=== PATIENT | female | born 1930 | race Caucasian/White ===

== ENCOUNTER → 2016-03-18 | Outpatient (CLI) | payer MEDICARE ==
[~2016-03-18] MED LIST: CITA20TA4 PO; MEMA28CA PO
[2016-03-18 17:20] LABS: BICARBONATE 29.8 MEQ/L (21.0-32.0); POTASSIUM 3.6 MEQ/L (3.5-5.1)
[2016-03-22 23:55] LABS: A FUMIGATUS CLASS 1 (()); A TENUIS 0 kU/L (()); ALMOND 0.15 kU/L (()); BAHIA GRASS LESS THAN 0.10 kU/L (()); BAHIA GRASS CLASS 0 (()); BERMUDA GRASS LESS THAN 0.10 kU/L (()); BERMUDA GRASS CLASS 0 (()); BIRCH CLASS 0 (()); C HERBARUM LESS THAN 0.10 kU/L (()); C HERBARUM CLASS 0 (()); CASHEW CLASS 0 (()); CAT DANDER LESS THAN 0.10 kU/L (()); CAT DANDER CLASS 0 (()); COCKROACH LESS THAN 0.10 kU/L (()); COCKROACH CLASS 0 (()); CODFISH CLASS 0 (()); COMMON PIGWEED LESS THAN 0.10 kU/L (()); COMMON PIGWEED CLASS 0 (()); COMMON RAGWEED LESS THAN 0.10 kU/L (()); COMMON RAGWEED CLASS 0 (()); COWS MILK CLASS 0 (()); COWS MILK IGE LESS THAN 0.10 kU/L (()); D FARINAE 0.15 kU/L (()); D PTERONYSSINUS LESS THAN 0.10 kU/L (()); D PTERONYSSINUS CLASS 0 (()); DOG DANDER LESS THAN 0.10 kU/L (()); DOG DANDER CLASS 0 (()); EGG WHITE LESS THAN 0.10 kU/L (()); EGG WHITE CLASS 0 (()); HAZELNUT LESS THAN 0.10 kU/L (()); HAZELNUT CLASS 0 (()); MAPLE (BOX ELDER) 0.11 kU/L (()); MOUSE CLASS 0 (()); MOUSE URINE PROTEINS LESS THAN 0.10 kU/L (()); NETTLE LESS THAN 0.10 kU/L (()); NETTLE CLASS 0 (()); OAK WHITE LESS THAN 0.10 kU/L (()); OAK WHITE CLASS 0 (()); P NOTATUM 0.41 kU/L (()); P NOTATUM CLASS 1 (()); PEANUT 0.11 kU/L (()); PECAN TREE CLASS 0 (()); SALMON LESS THAN 0.10 kU/L (()); SALMON CLASS 0 (()); SCALLOP LESS THAN 0.10 kU/L (()); SCALLOP CLASS 0 (()); SESAME SEED 0.19 kU/L (()); SHEEP SORREL 0.11 kU/L (()); SHRIMP 0.45 kU/L (()); SHRIMP CLASS 1 (()); SOYBEAN LESS THAN 0.10 kU/L (()); SOYBEAN CLASS 0 (()); TIMOTHY GRASS LESS THAN 0.10 kU/L (()); TIMOTHY GRASS CLASS 0 (()); TUNA LESS THAN 0.10 kU/L (()); TUNA CLASS 0 (()); WALNUT LESS THAN 0.10 kU/L (()); WALNUT CLASS 0 (()); WHEAT LESS THAN 0.10 kU/L (()); WHEAT CLASS 0 (())
== END ==
LOC: PLAB 14:50
PROVIDERS: ATTEND Family Medicine
DX: R21 Rash and other nonspecific skin eruption (principal); L29.9 Pruritus, unspecified
CPT/HCPCS: 36415; 80048; 86003

== ENCOUNTER 2016-05-13 11:58 | Emergency (ER) | payer MEDICARE ==
[~2016-05-13] VITALS: Ht 162.6 cm; Wt 50.0 kg
[2016-05-13 12:01] VITALS: BP 195/74; PULSE 65; RESP 18; TEMP 97.9; O2SAT 99
[2016-05-13] MEDS ORDERED: CITA20TA4 PO (12:10)
[2016-05-13] MEDS ORDERED: MEMA28CA PO (12:10)
--- NOTE | 2016-05-13 12:38 | RADHPO ---
EXAM DATE/TIME: 05/13/2016 12:25 [facility] COMPARISON: No previous studies available for comparison. INDICATIONS : Left wrist pain. Fell MEDICAL HISTORY : None. SURGICAL HISTORY : None. ENCOUNTER: Initial ACUITY: 1 day PAIN SCORE: 0/10 LOCATION: Left wrist FINDINGS: No fracture is seen. There is chronic remodeling and degenerative hypertrophic change at the first ca rpometacarpal joint. CONCLUSION: Chronic change at the first carpometacarpal joint. Auqiles Mckeon MD on May 13, 2016 at 12:35 Board Certified Radiologist. This report was verified electronically.
--- NOTE | 2016-05-13 12:38 | PD ---
HPI Chief Complaint: Fall Time Seen by Provider: 12:08 Travel History International Travel<30 days: No Contact w/Intl Traveler<30days: No Traveled to known affect area: No History of Present Illness HPI And 85 year-old woman who presents to the emergency department complaining of pain after fall. She is a history dementia. She lives in [facility]. She has been pulling some recently. She walks with a walker. She fell today but hasn't really millimeter fall. She is pain on her left wrist, believes he hit her head. She is not complaining of any head pain. She initially denied any neck pain at all. She had full range of motion of her neck. Later she was complaints of the nurse of some neck pain. She otherwise looks well. She has no hip or leg pain. No other complaints. History Past Medical History Narrative Medical Dementia Social History Alcohol Use: No Tobacco Use: No Allergies-Medications (Allergen,Severity, Reaction): Coded Allergies: No Known Allergies (Unverified , 05/13/16) Reported Meds & Prescriptions Reported Meds & Active Scripts Active Reported Namenda Xr (Memantine) 28 Mg Caper 28 Mg PO DAILY Citalopram (Citalopram Hydrobromide) 20 Mg Tab 20 Mg PO DAILY Review of Systems Except as stated in HPI: all other systems reviewed are Neg Physical Exam Narrative GENERAL: Well-appearing 85 year-old woman, no acute distress. SKIN: Warm and dry. HEAD: Normocephalic. She is a little bit of tenderness to posterior occiput but I don't really feel any large hematomas or abrasions. No blood. EYES: Pupils equal and round. No scleral icterus. No injection or drainage. ENT: No nasal bleeding or discharge. Mucous membranes pink and moist. NECK: Trachea midline. No midline tenderness. Full range of motion.. CARDIOVASCULAR: Regular rate and rhythm. No murmur appreciated. RESPIRATORY: No accessory muscle use. Clear to auscultation. Breath sounds equal bilaterally. GASTROINTESTINAL: Abdomen soft, non-tender, nondistended. Hepatic and splenic margins not palpable. MUSCULOSKELETAL: No obvious deformities. Pretty unremarkable exam of the left wrist. Is a little bit tenderness the base of the thumb but nothing substantial. She has no pain with axial loading of the thumb. She has full range of motion of the wrist and the thumb. NEUROLOGICAL: Awake and alert. Pleasantly confused. No obvious cranial nerve deficits. Motor grossly within normal limits. Normal speech. Data Data Last Documented VS Vital Signs Date Time Temp Pulse Resp B/P Pulse Ox O2 Delivery O2 Flow Rate FiO2 05/13/16 12:05 66 05/13/16 12:01 97.9 18 195/[address] Brain W/O Iv Contrast(Rout) (05/13/16 ) Wrist, Complete ([id number]) (05/13/16 ) Ct Cerv Spine W/O Contrast (05/13/16 ) [facility] Medical Decision Making Medical Screen Exam Complete: Yes Emergency Medical Condition: Yes Interpretation(s) Left wrist x-ray: Chronic changes of the first carpometacarpal joint. CT head: No acute intracranial abnormality. CT cervical spine. Degenerative changes. Anterolisthesis of C3 and C4 felt to be degenerative. No fracture really account for such. Differential Diagnosis Fracture, contusion, injury, other Narrative Course Medical decision making Well 85-year-old with a fall. She looks fine. Is really minimal evidence of injury to left wrist. Some minimal tenderness to the base of the thumb. Conceivably she could have a scaphoid injury that the culprit and is extremely unlikely. The burning of a prophylactic splint would be very high in this woman who uses a walker to get around his artery fallen several times. She has such minimal symptoms that I would defer prophylactic splinting at this time, repeat imaging if needed. We'll check CT of her head and neck as well. FINAL: Reviewed CT head and neck as well as the wrist. The neck has Sarina some anterolisthesis is probably degenerative. I went back to reassess the patient she's had complaining of any neck pain at all. She has full painless range of motion. I don't think she needs any further imaging. Recommend outpatient follow-up. Diagnosis Primary Impression: Left wrist pain Additional Impression: Fall Qualified Code: W19.XXXA - Fall, initial encounter Additional Instructions: Take caution to prevent falls. Follow up with her primary doctor if anything still hurts in 2-3 days. Return to the emergency department for any new or worsening symptoms. Med/Other Pt SpecificInfo: Prescription(s) given Disposition: 01 DISCHARGE HOME Condition: Stable Prasad Morataya MD May 13, 2016 12:38
--- NOTE | 2016-05-13 12:47 | RADHPO ---
EXAM DATE/TIME: 05/13/2016 12:29 [facility] COMPARISON: No previous studies available for comparison. INDICATIONS : Trauma. Trip and fall. RADIATION DOSE: 57.41 CTDIvol (mGy) MEDICAL HISTORY : Dementia. SURGICAL HISTORY : Hysterectomy. ENCOUNTER: Initial ACUITY: 1 day PAIN SCALE: 4/10 LOCATION: cranial TECHNIQUE: Multiple contiguous axial images were obtained of the head. Using automated exposure control and adj ustment of the mA and/or kV according to patient size, radiation dose was kept as low as reasonably a chievable to obtain optimal diagnostic quality images. FINDINGS: CEREBRUM: Atrophy. The ventricles are normal for age. No evidence of midline shift, mass lesion, hemorrhage or acute infarction. No extra-axial fluid collections are seen. POSTERIOR FOSSA: The cerebellum and brainstem are intact. The 4th ventricle is midline. The cerebellopontine angle i s unremarkable. EXTRACRANIAL: The visualized portion of the orbits is intact. Mucosal thickening involving right sphenoid sinus wit hout air-fluid level. SKULL: The calvaria is intact. No evidence of skull fracture. CONCLUSION: 1. No acute intracranial abnormality. 2. Atrophy. Jagjit Olivares Jr., MD on May 13, 2016 at 12:43 Board Certified Radiologist. This report was verified electronically.
--- NOTE | 2016-05-13 14:28 | RADHPO ---
EXAM DATE/TIME: 05/13/2016 12:29 [facility] COMPARISON: No previous studies available for comparison. INDICATIONS: Trauma. Trip and fall. RADIATION DOSE: 24.24 CTDIvol (mGy) MEDICAL HISTORY: Dementia. SURGICAL HISTORY: Hysterectomy. ENCOUNTER: Initial ACUITY: 1 day PAIN SCALE: 2/10 LOCATION: Neck TECHNIQUE: Volumetric scanning of the cervical spine was performed. Multiplanar reconstructions in the sagittal, coronal and oblique axial planes were performed. Using automated exposure control and adjustment o f the mA and/or kV according to patient size, radiation dose was kept as low as reasonably achievable to obtain optimal diagnostic quality images. FINDINGS: There is reversal of the normal cervical lordosis with extensive degenerative changes in the cervical spine. C1 and C2 are intact. C2-C3: There is mild uncinate riding present with bilateral neural foramina encroachment. C3-C4: There is uncinate ridging and facet disease with bilateral neural foramina encroachment. There is ve ry minimal anterolisthesis of C3 on C4 thought to be related to a degenerative process. C4-C5: Uncinate ridging is present with bilateral neural foramina encroachment worse on the right than the l eft and mild spinal stenosis. Marked uncinate ridging is present with bilateral neural foramina enc roachment. C5-C6: Uncinate ridging is present with bilateral neural foramina encroachment worse on the left than the ri ght. C6-C7: The bony spinal canal is normal in size. No evidence of disc bulge or herniation. The neural forami na are bilaterally patent. C7-T1: The bony spinal canal is normal in size. No evidence of disc bulge or herniation. The neural forami na are bilaterally patent. CONCLUSION: 1. Degenerative changes as described above. 2. There is anterolisthesis of C3 on C4 thought to be degenerative. I do not see a fracture to acco unt for such. 3. Controlled flexion/extension films may be of benefit. Albert Goode MD FACR on May 13, 2016 at 13:00 Board Certified Radiologist. This report was verified electronically.
== END 2016-05-13 15:42 | disposition home or self-care (01) ==
LOC: PHED 11:58 → PHEFT 15:42
DX: M25.532 Pain in left wrist (principal); W19.XXXA Unspecified fall, initial encounter; Y93.01 Activity, walking, marching and hiking; Y92.129 Unspecified place in nursing home as the place of occurrence of the external cause
CPT/HCPCS: 70450; 72125; 73110

== ENCOUNTER → 2016-08-10 | Outpatient (CLI) | payer MEDICARE ==
[2016-08-10 13:18] LABS: AUTOMATED NEUTROPHIL # 5.1 TH/MM3 (1.8-7.7); BASOPHIL # 0.1 TH/MM3 (0-0.2); BASOPHIL % 1.3 % (0.0-2.0); EOSINOPHIL # 0.8 TH/MM3 (0-0.4); EOSINOPHIL % 9.8 % (0.0-4.0); HEMO FLAGS DIFF FINAL; LYMPH % 22.9 % (9.0-44.0); MEAN CELL VOLUME 96.3 FL (80.0-100.0); MEAN CORPUSCULAR HGB CONC 32.2 % (32.0-36.0); MONO % 7.3 % (0.0-8.0); NEUT % 58.7 % (16.0-70.0); PLATELET COUNT 242 TH/MM3 (150-450); RED BLOOD COUNT 3.32 MIL/MM3 (4.00-5.30); RED CELL DISTRIBUTION WIDTH 14.8 % (11.6-17.2); WHITE BLOOD COUNT 8.6 TH/MM3 (4.0-11.0)
[2016-08-10 13:39] LABS: ANION GAP 11 MEQ/L (5-15); AST (GOT) 16 U/L (15-37); BICARBONATE 22.5 MEQ/L (21.0-32.0); BLOOD UREA NITROGEN 32 MG/DL (7-18); CHLORIDE 107 MEQ/L (98-107); GLOMERULAR FILTRATION RATE 46 ML/MIN (>89); GLUCOSE,FASTING 79 MG/DL (74-99); POTASSIUM 4.3 MEQ/L (3.5-5.1); SODIUM (NA) 140 MEQ/L (136-145)
[2016-08-10 13:40] LABS: ALT (GPT) 18 U/L (10-53)
[2016-08-10 13:50] LABS: ALKALINE PHOSPHATASE 78 U/L (45-117); TOTAL BILIRUBIN ADULT 0.5 MG/DL (0.2-1.0)
== END ==
LOC: PLAB 12:01
PROVIDERS: ATTEND Family Medicine
DX: F41.9 Anxiety disorder, unspecified (principal); F03.90 Unspecified dementia, unspecified severity, without behavioral disturbance, psychotic disturbance, mood disturbance, and anxiety; R41.3 Other amnesia; N18.3 Chronic kidney disease, stage 3 (moderate)
CPT/HCPCS: 36415; 80053; 84443; 85025

== ENCOUNTER → 2016-10-21 | Outpatient (CLI) | payer MEDICARE ==
[~2016-10-21] MED LIST changes: +ACET500T13 PO; +GNP8.6TA PO; +ULTR50TA5 PO
[2016-10-21 17:25] LABS: AUTOMATED NEUTROPHIL # 4.2 TH/MM3 (1.8-7.7); BASOPHIL # 0.1 TH/MM3 (0-0.2); BASOPHIL % 1.5 % (0.0-2.0); EOSINOPHIL # 0.6 TH/MM3 (0-0.4); EOSINOPHIL % 6.6 % (0.0-4.0); HEMATOCRIT 32.2 % (35.0-46.0); HEMO FLAGS DIFF FINAL; LYMPH % 31.1 % (9.0-44.0); LYMPHOCYTE # 2.6 TH/MM3 (1.0-4.8); MEAN CELL VOLUME 97.1 FL (80.0-100.0); MEAN CORPUSCULAR HEMOGLOBIN 32.1 PG (27.0-34.0); MEAN CORPUSCULAR HGB CONC 33.1 % (32.0-36.0); MONO % 10.1 % (0.0-8.0); NEUT % 50.7 % (16.0-70.0); PLATELET COUNT 233 TH/MM3 (150-450); RED BLOOD COUNT 3.32 MIL/MM3 (4.00-5.30); RED CELL DISTRIBUTION WIDTH 14.6 % (11.6-17.2); WHITE BLOOD COUNT 8.4 TH/MM3 (4.0-11.0)
[2016-10-21 17:35] LABS: ANION GAP 8 MEQ/L (5-15); AST (GOT) 20 U/L (15-37); BICARBONATE 26.1 MEQ/L (21.0-32.0); BLOOD UREA NITROGEN 31 MG/DL (7-18); CHLORIDE 105 MEQ/L (98-107); GLOMERULAR FILTRATION RATE 39 ML/MIN (>89); POTASSIUM 4.1 MEQ/L (3.5-5.1); SODIUM (NA) 139 MEQ/L (136-145)
[2016-10-21 17:37] LABS: ALT (GPT) 19 U/L (10-53)
[2016-10-21 17:38] LABS: ALKALINE PHOSPHATASE 74 U/L (45-117); TOTAL BILIRUBIN ADULT 0.2 MG/DL (0.2-1.0)
== END ==
LOC: PLAB 13:59
PROVIDERS: ATTEND Family Medicine
DX: D64.9 Anemia, unspecified (principal); R41.3 Other amnesia; F03.90 Unspecified dementia, unspecified severity, without behavioral disturbance, psychotic disturbance, mood disturbance, and anxiety
CPT/HCPCS: 36415; 80053; 85025

== ENCOUNTER 2016-11-08 13:06 | Emergency (ER) | payer MEDICARE ==
[~2016-11-08 13:06] MED LIST changes: -ACET500T13 PO; -GNP8.6TA PO; -ULTR50TA5 PO
--- NOTE | 2016-11-08 13:25 | PD ---
HPI Chief Complaint: fall Time Seen by Provider: 13:10 Travel History International Travel<30 days: No Contact w/Intl Traveler<30days: No History of Present Illness HPI 85 year old female presents to the emergency department via EMS for evaluation after she fell using her walker. She is a resident at [facility]. The staff witnessed the fall. She lost her balance using her walker and fell backwards. She hit her head, but did not lose consciousness. Patient denies any pain to me. She has a history of dementia. According to EMS, she has a history of frequent falls. Patient denies any headache, chest pain, SOB, abdominal pain, nausea, vomiting, diarrhea. She is not on anticoagulants. PFSH Past Medical History Depression: Yes Dementia: Yes Diminished Hearing: No Past Surgical History Hysterectomy: Yes Social History Alcohol Use: No Tobacco Use: No Substance Use: No Allergies-Medications (Allergen,Severity, Reaction): Coded Allergies: No Known Allergies (Unverified , 05/13/16) Reported Meds & Prescriptions Reported Meds & Active Scripts Active Reported Namenda Xr (Memantine) 28 Mg Caper 28 Mg PO DAILY Citalopram (Citalopram Hydrobromide) 20 Mg Tab 20 Mg PO DAILY Review of Systems Except as stated in HPI: all other systems reviewed are Neg Physical Exam Narrative GENERAL: Well-nourished, well-developed elderly female patient, afebrile. SKIN: Focused skin assessment warm/dry. HEAD: Normocephalic. Atraumatic. EYES: No scleral icterus. No injection or drainage. NECK: Supple, trachea midline. No JVD or lymphadenopathy. CARDIOVASCULAR: Regular rate and rhythm without murmurs, gallops, or rubs. RESPIRATORY: Breath sounds equal bilaterally. No accessory muscle use. Lungs sounds are clear to auscultation. GASTROINTESTINAL: Abdomen soft, non-tender, nondistended. MUSCULOSKELETAL: No cyanosis, or edema. BACK: Nontender without obvious deformity. No CVA tenderness. Patient has mild tenderness to midline lumbar spine. No other bony point tenderness. Data Data Last Documented VS Vital Signs Date Time Temp Pulse Resp B/P (MAP) Pulse Ox O2 Delivery O2 Flow Rate FiO2 11/08/16 13:52 97 11/08/16 13:26 97.9 82 18 180/84 (116) Orders Orders Ct Brain W/O Iv Contrast(Rout) (11/08/16 ) Ct Cerv Spine W/O Contrast (11/08/16 ) Ct Lumb Spine W/O Contrast (11/08/16 ) MDM Medical Decision Making Medical Screen Exam Complete: Yes Emergency Medical Condition: Yes Medical Record Reviewed: Yes Interpretation(s) Ct brain CONCLUSION: 1. No acute intracranial abnormality. 2. Age-related atrophy. 3. Right sphenoid sinus disease. Ct cervical spine CONCLUSION: Degenerative change. An acute bony abnormality is not seen. Ct lumbar spine - CONCLUSION: 1. Mild, 3 mm, grade 1 anterolisthesis of L4 on L5, likely degenerative. 2. Otherwise, no acute fracture or subluxation. 3. 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 4. Distended bladder may reflect some degree of bladder outlet obstruction versus neurogenic bladder. Clinical correlation is recommended. 5. Small hiatal hernia. Differential Diagnosis fall vs. closed head injury vs. intracranial abnormality vs. fracture vs. contusion vs. strain Narrative Course 85 year old female presents to the emergency department via EMS for evaluation after a fall. CT of the brain, cervical spine, and lumbar spine are ordered and pending. CT of the brain shows 1. No acute intracranial abnormality; 2. Age-related atrophy; 3. Right sphenoid sinus disease. CT of the cervical spine shows Degenerative change. An acute bony abnormality is not seen. CT of the lumbar spine shows 1. Mild, 3 mm, grade 1 anterolisthesis of L4 on L5, likely degenerative; 2. Otherwise, no acute fracture or subluxation; 3. 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 Distended bladder may reflect some degree of bladder outlet obstruction versus neurogenic bladder. Clinical correlation is recommended; 5. Small hiatal hernia. The patient was able to void 350 ML's of urine without difficulty. Bladder scan was completed after which showed no residual. The patient is stable to be discharged home. I discussed all findings by attending physician, Dr. Mcfarland, who agrees with plan and disposition. The patient was discharged in stable condition with instructions, including return instructions and follow up instructions. Diagnosis Primary Impression: Fall Qualified Codes: W19.XXXA - Unspecified fall, initial encounter Additional Impression: Closed head injury Qualified Codes: S09.90XA - Unspecified injury of head, initial encounter Referrals: Primary Care Physician call for appointment Patient Instructions: Fall Prevention for Older Adults (ED), General Instructions Additional Instructions: Follow-up with your primary care physician. Return to the emergency department for any acute worsening of symptoms. Med/Other Pt SpecificInfo: No Change to Meds Disposition: 01 DISCHARGE HOME Condition: Stable Mary Grace Doan Nov 08, 2016 13:25
[2016-11-08 13:26] VITALS: BP 180/84; PULSE 82; RESP 18; TEMP 97.9
[2016-11-08 13:52] VITALS: O2SAT 97
--- NOTE | 2016-11-08 14:04 | RADRPT ---
EXAM DATE/TIME: 11/08/2016 13:51 [facility] COMPARISON: CT BRAIN W/O CONTRAST, May 13, 2016, 12:29. INDICATIONS : Patient tripped and fell with walker this morning. RADIATION DOSE: 42.13 CTDIvol (mGy) MEDICAL HISTORY : Dementia. SURGICAL HISTORY : Hysterectomy. ENCOUNTER: Initial ACUITY: 1 day PAIN SCALE: 4/10 LOCATION: cranial TECHNIQUE: Multiple contiguous axial images were obtained of the head. Using automated exposure control and adj ustment of the mA and/or kV according to patient size, radiation dose was kept as low as reasonably a chievable to obtain optimal diagnostic quality images. DICOM format image data is available electro nically for review and comparison. FINDINGS: CEREBRUM: The ventricles and cortical sulci are widened. No evidence of midline shift, mass lesion, hemorrhage or acute infarction. No extra-axial fluid collections are seen. POSTERIOR FOSSA: The cerebellum and brainstem are intact. The 4th ventricle is midline. The cerebellopontine angle i s unremarkable. EXTRACRANIAL: The visualized portion of the orbits is intact. There is right sphenoid sinus disease. SKULL: The calvaria is intact. No evidence of skull fracture. CONCLUSION: 1. No acute intracranial abnormality. 2. Age-related atrophy. 3. Right sphenoid sinus disease. Aquiles Mckeon MD on November 08, 2016 at 13:56 Board Certified Radiologist. This report was verified electronically.
--- NOTE | 2016-11-08 14:18 | RADRPT ---
EXAM DATE/TIME: 11/08/2016 13:51 [facility] COMPARISON: CT CERVICAL SPINE W/O CONTRAST, May 13, 2016, 12:29. INDICATIONS : Patient tripped and fell with walker this morning. RADIATION DOSE: 13.67 CTDIvol (mGy) MEDICAL HISTORY : Dementia. SURGICAL HISTORY : Hysterectomy. ENCOUNTER: Initial ACUITY: 1 day PAIN SCALE: 4/10 LOCATION: neck TECHNIQUE: Volumetric scanning of the cervical spine was performed. Multiplanar reconstructions in the sagittal, coronal and oblique axial planes were performed. Using automated exposure control and adjustment o f the mA and/or kV according to patient size, radiation dose was kept as low as reasonably achievable to obtain optimal diagnostic quality images. DICOM format image data is available electronically f or review and comparison. FINDINGS: VERTEBRAE: Normal vertebral body height. ALIGNMENT: There is mild persistent anterior subluxation of C3 on C4. C2-C3: The bony spinal canal is normal in size. No evidence of disc bulge or herniation. The neural forami na are bilaterally patent. There is moderate left facet hypertrophy. C3-C4: Again noted is the anterior subluxation of C3 on C4. This is secondary to facet hypertrophy. This was present previously. The disc maintains its normal relationship with the superior aspect of C4 creati ng a mild bulge like configuration. There is mild narrowing of the thecal sac. There is mild right ne ural foraminal narrowing. The left neural foramen is patent. C4-C5: The disc demonstrates decreased height. There is mild bulging and osteophyte formation causing minima l impression on anterior aspect of the thecal sac. There is uncovertebral hypertrophy and facet hyper trophy. The facet hypertrophy is asymmetric and worse on the right. There is mild narrowing of the ne ural foramina. C5-C6: The disc demonstrates decreased height. There is slight bulging without significant stenosis. There i s uncovertebral and facet hypertrophy. There is narrowing of the neural foramina being worse on the l eft. C6-C7: The disc demonstrates decreased height. A significant impression on the thecal sac is not seen. There is mild uncovertebral hypertrophy. The neural foramina are patent bilaterally. C7-T1: The bony spinal canal is normal in size. No evidence of disc bulge or herniation. The neural forami na are bilaterally patent. CONCLUSION: Degenerative change. An acute bony abnormality is not seen. Aquiles Mckeon MD on November 08, 2016 at 14:11 Board Certified Radiologist. This report was verified electronically.
--- NOTE | 2016-11-08 14:23 | RADRPT ---
EXAM DATE/TIME: 11/08/2016 13:59 [facility] COMPARISON: No previous studies available for comparison. INDICATIONS : Patient tripped and fell with walker this morning. RADIATION DOSE: 35.86 CTDIvol (mGy) MEDICAL HISTORY : Dementia. SURGICAL HISTORY : Hysterectomy. ENCOUNTER: Initial ACUITY: 1 day PAIN SCALE: 4/10 LOCATION: spine TECHNIQUE: Volumetric scanning of the lumbar spine was performed. Multiplanar reconstructions in the sagittal, coronal and oblique axial planes were performed. Using automated exposure control and adjustment of the mA and/or kV according to patient size, radiation dose was kept as low as reasonably achievable t o obtain optimal diagnostic quality images. DICOM format image data is available electronically for review and comparison. FINDINGS: Mild, 3 mm, grade 1 anterolisthesis of L4 on L5. Sagittal alignment is otherwise maintained. Vertebra l body heights are intact. No evidence for acute bony fracture or focal bony destruction. Facets are normally aligned. Bony central canal is patent. No significant prevertebral soft tissue hematoma. Taye dder appears distended. Small hiatal hernia. Visualized paraspinal soft tissues are demonstrated with out additional significant abnormality. There is degenerative spondylosis of the lower lumbar spine m ost prominent at L4-5 and L5-S1 with vacuum disc phenomenon, diffuse disc bulge and bilateral facet a rthropathy. CONCLUSION: 1. Mild, 3 mm, grade 1 anterolisthesis of L4 on L5, likely degenerative. 2. Otherwise, no acute fracture or subluxation. 3. 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 4. Distended bladder may reflect some degree of bladder outlet obstruction versus neurogenic bladder. Clinical correlation is recommended. 5. Small hiatal hernia. Silver Clarke MD on November 08, 2016 at 14:16 Board Certified Radiologist. This report was verified electronically.
--- NOTE | 2016-11-08 18:13 | PD ---
Data Data Last Documented VS Vital Signs Date Time Temp Pulse Resp B/P (MAP) Pulse Ox O2 Delivery O2 Flow Rate FiO2 11/08/16 13:52 97 11/08/16 13:26 97.9 82 18 180/84 (116) Orders Orders Ct Brain W/O Iv Contrast(Rout) (11/08/16 ) Ct Cerv Spine W/O Contrast (11/08/16 ) Ct Lumb Spine W/O Contrast (11/08/16 ) MDM Supervised Visit with ABDULAZIZ: Yes Narrative Course The history, exam, and medical decision-making in the associated midlevel provider note were completed with my assistance. I reviewed and agree with the findings presented. I attest that I had a [id number] encounter with the patient on the same day, and personally performed and documented my assessment and findings in the medical record. *My assessment and Findings: This is an 85-year-old female who presents to the emergency department having sustained a closed head injury and injuring her low back following a fall. CT of the head was reassuring. CT lumbar spine demonstrated a distended bladder. Patient voided and had no postvoid residual bladder scan. I think she is safe for discharge. Diagnosis Primary Impression: Fall Qualified Codes: W19.XXXA - Unspecified fall, initial encounter Additional Impression: Closed head injury Referrals: Primary Care Physician call for appointment Patient Instructions: General Instructions, Fall Prevention for Older Adults ( ED) Departure Forms: Tests/Procedures Additional Instruction: Follow-up with your primary care physician. Return to the emergency department for any acute worsening of symptoms. Disposition: 01 DISCHARGE HOME Condition: Stable Lizzie Teresa MD Nov 08, 2016 18:13
== END 2016-11-08 17:35 | disposition home or self-care (01) ==
LOC: NEPC 13:06
DX: S09.90XA Unspecified injury of head, initial encounter (principal); S39.92XA Unspecified injury of lower back, initial encounter; F03.90 Unspecified dementia, unspecified severity, without behavioral disturbance, psychotic disturbance, mood disturbance, and anxiety; F32.9 Major depressive disorder, single episode, unspecified; K44.9 Diaphragmatic hernia without obstruction or gangrene; W18.30XA Fall on same level, unspecified, initial encounter
CPT/HCPCS: 70450; 72125; 72131; 99285

== ENCOUNTER 2016-12-15 18:16 | Inpatient (IN) | payer MEDICARE ==
[2016-12-15 19:22] VITALS: BP 155/98; PULSE 93; RESP 17; TEMP 97.5; O2SAT 96
--- NOTE | 2016-12-15 21:09 | PD ---
HPI . Fall Chief Complaint: Fall Time Seen by Provider: 19:17 Travel History International Travel<30 days: No Contact w/Intl Traveler<30days: No Traveled to known affect area: No History of Present Illness HPI 86-year-old female presents emergency department via EMS for evaluation after she fell in her [facility]. The report was that the patient was trying to get to her wheelchair and fell. The patient is confused however I understand she has a history of dementia. The patient is complaining of abdominal pain and thoracic level back pain. Patient denies any paresthesias at this time. The patient is alert to self but very confused and thinks she is gardening. There is no focal neurological deficit noted. There is no obvious deformities. The abdomen is soft but tender to palpation. PFSH Past Medical History Depression: Yes Dementia: Yes Diminished Hearing: No Tetanus Vaccination: Unknown Past Surgical History Hysterectomy: Yes Social History Alcohol Use: No Tobacco Use: No Substance Use: No Allergies-Medications (Allergen,Severity, Reaction): Coded Allergies: No Known Allergies (Unverified , 05/13/16) Reported Meds & Prescriptions Reported Meds & Active Scripts Active Reported Namenda Xr (Memantine) 28 Mg Caper 28 Mg PO DAILY Citalopram (Citalopram Hydrobromide) 20 Mg Tab 20 Mg PO DAILY Review of Systems Except as stated in HPI: all other systems reviewed are Neg Physical Exam Narrative GENERAL: Well-nourished, well-developed 86-year-old female patient in no acute rest for distress. Nontoxic appearing. SKIN: Focused skin assessment warm/dry. HEAD: Normocephalic. Atraumatic. NEUROLOGICAL: Awake and alert. Cranial nerves II through XII intact. Motor and sensory grossly within normal limits. Five out of 5 muscle strength in all muscle groups. Normal speech. EYES: No scleral icterus. No injection or drainage. NECK: Supple, trachea midline. No JVD or lymphadenopathy. CARDIOVASCULAR: Regular rate and rhythm without murmurs, gallops, or rubs. RESPIRATORY: Breath sounds equal bilaterally. No accessory muscle use. GASTROINTESTINAL: Abdomen diffusely tender to palpation, soft, nondistended. MUSCULOSKELETAL: Full range of motion in extremities. No obvious deformity, ecchymosis, erythema, cyanosis, or edema. BACK: Midline spinal tenderness thoracic region. Cervical and lumbar spine nontender. No obvious deformity or signs of trauma, ecchymosis, erythema. No CVA tenderness. Data Data Last Documented VS Vital Signs Date Time Temp Pulse Resp B/P (MAP) Pulse Ox O2 Delivery O2 Flow Rate FiO2 12/15/16 22:31 92 18 140/73 (95) 95 Room Air 12/15/16 19:[address] Brain W/O Iv Contrast(Rout) (12/15/16 19:28) Ct Abd/Pel W Iv Contrast(Rout) (12/15/16 19:28) Ct Thor Spine W/O Contrast (12/15/16 19:28) Creatinine (12/15/16 19:28) Ct Thorax/ Chest W Iv Contrast (12/15/16 ) Iohexol 350 Inj (Omnipaque 350 Inj) (12/15/16 21:21) Ct Lumb Spine W/O Contrast (12/15/16 22:44) Complete Blood Count With Diff (12/15/16 22:51) Urinalysis - C+S If Indicated (12/15/16 22:51) Cath For Specimen (12/15/16 22:51) Admit Order (Ed Use Only) (12/15/16 22:51) Labs Laboratory Tests Test 12/15/16 20:10 Creatinine 1.10 MG/DL Estimat Glomerular Filtration Rate 47 ML/MIN MDM Medical Decision Making Medical Screen Exam Complete: Yes Emergency Medical Condition: Yes Differential Diagnosis Differential diagnoses include but not limited to ICH, contusion, intra- abdominal bleeding, spleen laceration, fractures, fall Narrative Course 86-year-old female patient presents emergency department for evaluation after she fell at her [facility]. Patient is alert to self but confused. Patient is complaining of abdominal tenderness to palpation and thoracic level midline spinal tenderness. CT of brain, thoracic spine and abdomen ordered and pending. Creatinine will be evaluated prior to abdomen CT due to contrast being indicated. Abdominal CT shows no acute intra-abdominal or pelvic process with intact solid organs. Small of the local hernia containing fat. Head CT is a normal examination for a patient of this age Thoracic spine CT shows mild anterior wedging at T7 and T8 with essentially a kyphosis and degenerative spurring at the levels above suggesting representing remote compressions. There appears to be a concavity in cortical disruption of the superior vertebrae and endplate of L2 consistent with acute fracture. Lumbar spine CT ordered and pending to further evaluate the acute fracture. Patient will be admitted to the hospital for [address] Aldridge accepted admission for this patient. Baseline CBC and urinalysis ordered and pending. Diagnosis Primary Impression: Fall Qualified Codes: W19.XXXA - Unspecified fall, initial encounter Admitting Information Admitting Physician Requests: Observation Patient Instructions: Fall Prevention for Children (GEN), General Instructions Additional Instructions: Please return to emergency department if your symptoms return or worsen. Follow up with your primary care provider. Take medications as prescribed. Disposition: DISCHARGE HOME Condition: Stable Ina Eason Dec 15, 2016 21:09
[2016-12-15] MEDS ORDERED: IOHEXOL 350 MG/ML 10 ML VIAL (for RAD DIAG) IVCONTRAST ONE (21:21)
--- NOTE | 2016-12-15 21:30 | RADRPT ---
EXAM DATE/TIME: 12/15/2016 20:54 [facility] COMPARISON: CT BRAIN W/O CONTRAST, May 13, 2016, 12:29. INDICATIONS : Trauma, fall. RADIATION DOSE: 65.84 CTDIvol (mGy) MEDICAL HISTORY : None SURGICAL HISTORY : None. ENCOUNTER: Initial ACUITY: 1 day PAIN SCALE: 0/10 LOCATION: cranial TECHNIQUE: Multiple contiguous axial images were obtained of the head. Using automated exposure control and adj ustment of the mA and/or kV according to patient size, radiation dose was kept as low as reasonably a chievable to obtain optimal diagnostic quality images. DICOM format image data is available electro nically for review and comparison. FINDINGS: CEREBRUM: The ventricles are normal for age. No evidence of midline shift, mass lesion, hemorrhage or acute in farction. No extra-axial fluid collections are seen. POSTERIOR FOSSA: The cerebellum and brainstem are intact. The 4th ventricle is midline. The cerebellopontine angle i s unremarkable. EXTRACRANIAL: The visualized portion of the orbits is intact. SKULL: The calvaria is intact. No evidence of skull fracture. CONCLUSION: Normal examination for a patient of this age. Lenny Contreras MD on December 15, 2016 at 21:27 Board Certified Radiologist. This report was verified electronically.
--- NOTE | 2016-12-15 21:36 | RADRPT ---
EXAM DATE/TIME: 12/15/2016 21:02 [facility] COMPARISON: CT CERVICAL SPINE W/O CONTRAST, November 08, 2016, 13:51. INDICATIONS : Trauma, fall. IV CONTRAST: 80 cc Omnipaque 350 (iohexol) IV ; Cumulative dose for multiple exams. RADIATION DOSE: 13.51 CTDIvol (mGy) ; Combined studies - Thorax/Abdomen/Pelvis MEDICAL HISTORY : Non-responsive. SURGICAL HISTORY : Non-responsive. ENCOUNTER: Initial ACUITY: 1 day PAIN SCALE: Non-responsive LOCATION: chest TECHNIQUE: Volumetric scanning of the chest was performed. Using automated exposure control and adjustment of t he mA and/or kV according to patient size, radiation dose was kept as low as reasonably achievable to obtain optimal diagnostic quality images. DICOM format image data is available electronically for review and comparison. Follow-up recommendations for detected pulmonary nodules are based at a minimum on nodule size and pa tient risk factors according to Fleischner Society Guidelines. FINDINGS: LUNGS: There is no consolidation or pneumothorax. No concerning pulmonary nodule is visualized. Stable bila teral apical parenchymal scarring PLEURA: Stable bilateral apical pleural thickening. MEDIASTINUM: The heart and great vessels demonstrate no acute abnormality. There is no mediastinal or hilar lymph adenopathy. Coronary artery calcifications and large retrocardiac hiatal hernia. AXILLAE: Within normal limits. No lymphadenopathy. SKELETAL: Within normal limits for patient age. MISCELLANEOUS: The visualized upper abdominal organs demonstrate no acute abnormality. CONCLUSION: No acute abnormality with intact bony structures. Coronary artery calcifications. Chronic pleural-par enchymal apical scarring.. Lenny Contreras MD on December 15, 2016 at 21:29 Board Certified Radiologist. This report was verified electronically.
--- NOTE | 2016-12-15 21:41 | RADRPT ---
EXAM DATE/TIME: 12/15/2016 21:02 [facility] COMPARISON: No previous studies available for comparison. INDICATIONS : Trauma, fall. IV CONTRAST: 80 cc Omnipaque 350 (iohexol) IV ; Cumulative dose for multiple exams. ORAL CONTRAST: No oral contrast ingested. RADIATION DOSE: 13.51 CTDIvol (mGy) ; Combined studies - Thorax/Abdomen/Pelvis MEDICAL HISTORY : Non-responsive. SURGICAL HISTORY : Hysterectomy. ENCOUNTER: Initial ACUITY: 1 day PAIN SCALE: Non-responsive LOCATION: pelvis TECHNIQUE: Volumetric scanning of the abdomen and pelvis was performed. Using automated exposure control and adjustment of the mA and/or kV according to patient size, radiation dose was kept as low as reasonably achievable to obtain optimal diagnostic quality images. DICOM format image data is av ailable electronically for review and comparison. FINDINGS: LOWER LUNGS: The visualized lower lungs are clear. Moderate-sized retrocardiac hiatal hernia LIVER: Homogeneous density without lesion. There is no dilation of the biliary tree. No calcifi ed gallstones. Gallbladder is seen as a luminal structure without wall thickening SPLEEN: Normal size without lesion. PANCREAS: Within normal limits. KIDNEYS: Normal in size and shape. There is no mass, stone or hydronephrosis. ADRENAL GLANDS: Within normal limits. VASCULAR: There is no aortic aneurysm. BOWEL/MESENTERY: The stomach, small bowel, and colon demonstrate no acute abnormality. There is no free intraperitoneal air or fluid. ABDOMINAL WALL: Small umbilical hernia containing fat. RETROPERITONEUM: There is no lymphadenopathy. BLADDER: No wall thickening or mass. REPRODUCTIVE: Within normal limits. Surgical absence of the uterus INGUINAL: There is no lymphadenopathy or hernia. MUSCULOSKELETAL: Within normal limits for patient age. Facet arthritic changes of the lower lumba r spine CONCLUSION: No acute intra-abdominal or pelvic process with intact solid organs. Facet arthritic changes of lower lumbar spine with intact bony structures. Small umbilical hernia containing fat Lenny Contreras MD on December 15, 2016 at 21:35 Board Certified Radiologist. This report was verified electronically.
--- NOTE | 2016-12-15 21:50 | RADRPT ---
EXAM DATE/TIME: 12/15/2016 21:02 [facility] COMPARISON: CT ABDOMEN & PELVIS W CONTRAST, December 15, 2016, 21:02. CT LUMBAR SPINE W/O CONTRAST, November 08, 2016, 13:59. CT CERVICAL SPINE W/O CONTRAST, May 13, 2016, 12:29. INDICATIONS : Trauma, fall. RADIATION DOSE: CTDIvol (mGy) ; Reconstructed from previous dataset, no dose MEDICAL HISTORY : None SURGICAL HISTORY : None. ENCOUNTER: Initial ACUITY: 1 day PAIN SCALE: 5/10 LOCATION: Paraspinal TECHNIQUE: Volumetric scanning of the thoracic spine was performed. Multiplanar reconstructions in the sagittal , coronal and oblique axial planes were performed. Using automated exposure control and adjustment o f the mA and/or kV according to patient size, radiation dose was kept as low as reasonably achievable to obtain optimal diagnostic quality images. DICOM format image data is available electronically f or review and comparison. FINDINGS: Alignment appears normal. Interspersed anterior marginal spurring is appreciated. There is mild anter ior wedging of T7 and T8 with slight accentuated kyphosis and there is degenerative change spurring a t the levels above and below without cortical break or soft tissue mass suggesting this is remote. No retropulsion or spinal stenosis is noted at this level. On the lowest images there appears to be concavity superior vertebral end plate of L2 with cortical disruption consistent with a superior vertebral endplate fracture acute. CONCLUSION: Mild anterior wedging T7 and T8 as described above with slight accentuated kyphosis and degenerative spurring at the levels above and below suggesting this represents remote compressions. On the lowest images there is concavity and cortical disruption of the superior vertebral endplate of L2 consistent with acute fracture Lenny Contreras MD on December 15, 2016 at 21:41 Board Certified Radiologist. This report was verified electronically.
[2016-12-15 22:31] VITALS: BP 140/73; PULSE 92; RESP 18; O2SAT 95
[2016-12-15] MEDS ORDERED: NALOXONE HCL 0.4 MG/ML AMP IV PUSH PRN (23:00)
[2016-12-15] MEDS ORDERED: SENNOSIDES 8.6 MG TAB PO PRN (23:00)
[2016-12-15] MEDS ORDERED: SODIUM CHLORIDE 0.9% FLUSH 10 ML FLUSH IV FLUSH PRN (23:00)
--- NOTE | 2016-12-15 23:08 | HHI.PR ---
Addendum to Inpatient Note Addendum Reason: Additional Documentation Additional Information d/w ORTHODONTIC ASSISTANT in the ED. Will obs as her [facility] will not take her back tonight. Pt not painful in bed, encouraged to test with transfers. Check CT lumbar spine regarding fracture. Consider kyphoplasty if significant discomfort. Avoid narcotics if possible. Nursing notes she is pulling out IV so will leave it out as long as we don't need any IV meds (pending UA). Discussed with daughter and agreed with DNR status due to her advanced age, dementia, decline. I will see her in early AM tomorrow but advised pts daughter that if she needs to stay further, I will need to have [facility] follow as I will be out of town. If fracture and pain with inability to transfer, consider kyphoplasty. If not significant pain, consider TLSO brace for 6-8 weeks to allow healing. Zoraida Herring MD Dec 15, 2016 23:08
--- NOTE | 2016-12-15 23:13 | RADRPT ---
EXAM DATE/TIME: 12/15/2016 21:02 [facility] COMPARISON: CT LUMBAR SPINE W/O CONTRAST, November 08, 2016, 13:59. INDICATIONS : Trauma, fall. RADIATION DOSE: CTDIvol (mGy) ; Reconstructed from previous dataset, no dose MEDICAL HISTORY : Non-responsive. SURGICAL HISTORY : Non-responsive. ENCOUNTER: Initial ACUITY: 1 day PAIN SCALE: Non-responsive LOCATION: Paraspinal TECHNIQUE: Volumetric scanning of the lumbar spine was performed. Multiplanar reconstructions in the sagittal, coronal and oblique axial planes were performed. Using automated exposure control and adjustment of the mA and/or kV according to patient size, radiation dose was kept as low as reasonably achievable t o obtain optimal diagnostic quality images. DICOM format image data is available electronically for review and comparison. FINDINGS: There is again noted to be degenerative disc disease L3-S1 narrow disc spaces with air vacuum signs o f facet arthritic changes with additionally a grade 1 spondylolisthesis L4 on L5. Severe elements are intact. Relative prior examination there is an acute fracture superior posterior aspect of the L2 vertebral body with retropulsion of the superior posterior cortex into th e canal yielding localized spinal stenosis maximum AP width being 1 cm. CONCLUSION: New fracture superior posterior aspect of the L2 vertebral body with retropulsion of the superior pos terior cortex into the canal yielding 1 cm localized spinal stenosis. Stable degenerative changes L3-S1 with degenerative disc disease and facet arthritic changes and a grade 1 spondylolisthesis L4 on L5 Lenny Contreras MD on December 15, 2016 at 23:09 Board Certified Radiologist. This report was verified electronically.
[2016-12-15 23:50] LABS: AUTOMATED NEUTROPHIL # 9.9 TH/MM3 (1.8-7.7); BASOPHIL # 0.1 TH/MM3 (0-0.2); BASOPHIL % 0.5 % (0.0-2.0); EOSINOPHIL # 0.2 TH/MM3 (0-0.4); EOSINOPHIL % 1.4 % (0.0-4.0); HEMATOCRIT 32.8 % (35.0-46.0); HEMO FLAGS DIFF FINAL; LYMPH % 12.9 % (9.0-44.0); LYMPHOCYTE # 1.6 TH/MM3 (1.0-4.8); MEAN CELL VOLUME 92.2 FL (80.0-100.0); MEAN CORPUSCULAR HEMOGLOBIN 31.3 PG (27.0-34.0); MEAN CORPUSCULAR HGB CONC 33.9 % (32.0-36.0); MONO % 7.4 % (0.0-8.0); NEUT % 77.8 % (16.0-70.0); PLATELET COUNT 215 TH/MM3 (150-450); RED BLOOD COUNT 3.56 MIL/MM3 (4.00-5.30); RED CELL DISTRIBUTION WIDTH 13.2 % (11.6-17.2); WHITE BLOOD COUNT 12.7 TH/MM3 (4.0-11.0)
[2016-12-16] LABS: GLUCOSE,URINE NEG (NEG); KETONE, URINE NEG (NEG); NITRITE,URINE NEG (NEG)
[2016-12-16 00:21] LABS: BLOOD, URINE TRACE (NEG)
[2016-12-16 00:22] LABS: METHOD OF COLLECTION VOIDED; SQUAMOUS EPITHELIAL CELL URINE 0-2 /hpf (0-5); URINE COLOR STRAW (YELLW/STRAW); WBC, URINE 0-2 /hpf (0-5)
[2016-12-16 00:23] LABS: COMMENT (UR) CULT NOT INDICATED; CULTURE IF INDICATED CULT NOT INDICATED
[2016-12-16 01:00] VITALS: BP 125/84; PULSE 87; RESP 20; TEMP 98.6; O2SAT 92
--- NOTE | 2016-12-16 06:11 | HHI.PR ---
Addendum to Inpatient Note Addendum Reason: Additional Documentation Additional Information Patient seen and evaluated this AM. Will speak with radiology about possible kyphoplasty. She was uncomfortable on exam,not wanting to roll onto her back. Will try to see if we can get her kyphoplasty. If not will likely need to get her to rehab. Full note to be dictated. Zoraida Herring MD Dec 16, 2016 06:11
[2016-12-16] MEDS ORDERED: POTASSIUM CHLORIDE INJ 10 MEQ in SODIUM CHLOR 0.45% 1000 ML INJ 1,000 ML IV SCH (06:30)
[2016-12-16 07:50] VITALS: BP 140/70; PULSE 71; RESP 20; TEMP 96.2; O2SAT 96
[2016-12-16] MEDS: SODIUM CHLORIDE 0.9% FLUSH 10 ML FLUSH IV FLUSH SCH ×2 (08:42→20:51)
[2016-12-16] MEDS: DOCUSATE SODIUM 50 MG/SENNA 8.6 MG TAB PO SCH ×2 (08:42→20:51)
[2016-12-16] MEDS ORDERED: NON-FORMULARY DRUG (Memantine Er (Namenda Xr) 28 MG) PO SCH (09:00)
[2016-12-16] MEDS ORDERED: CITALOPRAM HYDROBROMIDE 20 MG TAB PO SCH (09:00)
--- NOTE | 2016-12-16 09:13 | MH ---
cc: JAIME THOMPSON DATE OF ADMISSION 12/15/2016 CHIEF COMPLAINT Fall at her assisted living. HISTORY OF PRESENT ILLNESS Ms. Hernández is an 86-year-old white female well-known to me with a progressive dementia who was at her assisted living yesterday evening and was found on the floor at the end of a hallway. She had difficulty getting up and was having complaints of pain in through her mid to lower back and abdomen. She was transferred via [facility] to the hospital for evaluation. History is limited from the patient due to her dementia, but she does complain of significant back pain. PAST MEDICAL HISTORY Significant for: 1. Macular degeneration 2. Osteoarthritis 3. Osteoporosis 4. Dementia 5. History of MRSA infection of her left arm December 09, 2016 resolved. PAST SURGICAL HISTORY 1. Hysterectomy 2. Tonsillectomy 3. Basal cell cancer of the nose removed in April of 2015. SOCIAL HISTORY She is in the past few years. She has no alcohol use. She is a retired pre school teacher. She has a college education. She has never smoked. MEDICATIONS 1. Tylenol 325 mg twice a day as needed for pain. 2. Citalopram 20 mg daily 3. Namenda XR 28 mg per day 4. She has previously been on osteoporosis medications for five years and it was subsequently stopped. ALLERGIES NO KNOWN DRUG ALLERGIES. FAMILY HISTORY Daughter is healthy. She is a eeler in [place]. Dad at 90 with an [place], arthritis and prostate disease. Mom at age 84 with osteoporosis, hip fracture, hypertension and congestive heart failure. She has two sons who are healthy. VACCINES Pneumovax 23 given in 2002, Prevnar April 2015. She did her flu shot December 09, 2016 in my office. REVIEW OF SYSTEMS Limited due to her dementia. She denies any chest discomfort or shortness of breath. She says her abdomen feels a little sore but cannot really describe it to me. There has not been any reports of diarrhea or pain with urination or changes in her urinary pattern. There is no nausea or vomiting. She does note that her back is significantly painful. She denies any pain into her legs or arms. She notes that she has itching. She denies any pain in through her head. She is generally confused and is talking about people opening windows in the room. She states that she is in a garden. She is not oriented to time or place. She does have a recollection that she fell, but cannot tell me the details of the events. OBJECTIVE Her blood pressure was a little elevated on admission at 155/98, currently 125/84. She has been afebrile. Her heart rate was initially elevated 93, now 87, O2 sats 96% on room air. GENERAL: She is a well-developed white female laying in the position on the left side in bed sleeping soundly when I arrived. She easily awakens. She is confused, but not in distress. NECK: Supple without lymphadenopathy. She has no lesions noted to her scalp. CARDIOVASCULAR: Regular rate and rhythm without murmurs. LUNGS: Clear bilaterally without wheezes or rhonchi. She does not seem to have discomfort taking deep breaths. ABDOMEN: Shows normal bowel sounds, slightly tender to the right lower quadrant. I do not see any bruising noted through her abdomen, back or buttocks at this time. BACK: She is tender to the mid left paraspinal area not so much over the spine. She is able to have passive range of motion of both lower legs while she is lying on her side with apparently intact strength, but difficult to evaluate due to her position. I tried to get her to roll to her back and she complained of severe pain and refused to do so. I was unable to get her to a sitting position either. She seemed to have full range of motion of her arms. She has an IV in her right antecubital fossa that is well wrapped. She is scratching during exam. LABORATORY DATA Shows a white count slightly elevated at 12.7, hemoglobin 11.1 which is stable for her. Neutrophils minimally elevated at 77.8 probably stress response. Creatinine 1.1 with a GFR of 47 which is actually improved. Urine shows a slightly high specific gravity of 1.035, trace blood, otherwise negative. IMAGING STUDIES CT of the lumbar spine shows an L2 compression fracture with retropulsion, mild spinal stenosis, arthritis changes throughout the low back. The abdomen and pelvis CT showed no acute intra-abdominal process. Arthritis changes to the spine and an umbilical hernia containing fat. Head CT showed general atrophy, but otherwise negative for stroke or hematoma. Thoracic spine CT showed old compression fractures of T7, T8 acute compression fracture at L2. Chest CT showed chronic scarring, coronary calcifications but otherwise within normal limits. ASSESSMENT/PLAN Fall with L2 compression fracture. She is really not able to move well today. I have consulted physical therapy for further evaluation. She may benefit from a TLSO brace. I am in conversation with neurosurgery and interventional radiology regarding the options for kyphoplasty or other procedures to stabilize her spine so that we can try to get her more mobile. I do feel that this time in her current condition, the [facility] currently resides will not take her back in her current condition as I do not think she will be able to independently transfer. I have spoken with her daughter regarding this and that we may need to proceed with fpc placement. She is significantly concerned with that idea due to her dementia and likely disruption in her emotional status which is reasonable, however, may be unavoidable. Dementia. She was not tolerating Aricept due to GI upset. She has been doing well with the Namenda, but continues to have decline in her mental status. She has declined in her ambulatory skills over the past year, her verbalization has significantly declined and also in the past year mostly in the past six months. She is dependent on others for her ADLs, preparation of meals, dressing. She has been able to independently transfer, but has been mostly in a wheelchair for the past several months due to being unsafe with walking with a walker. She does tend to forget the walker and is unable to ambulate without that. Plan of care will be dependent upon potential procedures to stabilize her spine versus continuing with supportive care in a TLSO brace. Regardless, I feel that she will likely need at least a short-term fpc stay for rehabilitation and to try to get her independent in transfers unless she does get significant pain relief with the surgical procedure. Further details later in the day once I have spoken with the consultants. MD CAMI De/ROSANNA /8:18 AM 8:49 AM
--- NOTE | 2016-12-16 09:32 | HHI.PR ---
Addendum to Inpatient Note Addendum Reason: Additional Documentation Additional Information I spoke with Dr. Casillas (interventional radiology) who noted it is a risk for kyphoplasty due to the retropulsed fragment and risk of further nerve compression but he would be willing to do it if family was understanding of the risks. Her daughter wanted me to speak with neurosurgery. I spoke with Dr. Thapa who agreed with the above risk and was more conservative. We decided to do the TLSO brace, PT and rehab. could consider pain mgt injection if pain continues. will try tramadol if pain not controlled with tylenol (avoiding nsaids due to renal function decline on them in the past) but would need to lower/stop the citalopram. Zoraida Moore MD Dec 16, 2016 09:32
--- NOTE | 2016-12-16 09:33 | HHI.PR ---
Addendum to Inpatient Note Addendum Reason: Additional Documentation Additional Information Discussed with Dr. Alexander with [facility] who will take over care this afternoon/ tomorrow as I'm going out of town. Zoraida Herring MD Dec 16, 2016 09:33
[2016-12-16] MEDS ORDERED: traMADol HCL 50 MG TAB PO PRN (09:45)
[2016-12-16 12:00] VITALS: BP 136/79; PULSE 68; RESP 18; TEMP 97.8; O2SAT 94
[2016-12-16] MEDS: ACETAMINOPHEN 325 MG TAB PO PRN ×2 (12:29→17:15)
[2016-12-16 16:00] VITALS: BP 130/64; PULSE 73; RESP 12; TEMP 96.1; O2SAT 92
[2016-12-16 20:00] VITALS: BP 161/80; PULSE 77; RESP 24; TEMP 98.2; O2SAT 96
[2016-12-16] MEDS: ACETAMINOPHEN 500 MG CPLT PO SCH (20:51)
[2016-12-17 08:00] VITALS: BP 139/63; PULSE 63; RESP 16; TEMP 96.8; O2SAT 95
[2016-12-17] MEDS ORDERED: INFLUENZA VIRUS VACCINE (QUADRIVALENT) 0.5 ML SYR IM ONE (10:00)
[2016-12-17] MEDS: SODIUM CHLORIDE 0.9% FLUSH 10 ML FLUSH IV FLUSH SCH ×2 (10:09→20:28)
[2016-12-17] MEDS: CITALOPRAM HYDROBROMIDE 20 MG TAB PO SCH (10:09)
[2016-12-17] MEDS: ACETAMINOPHEN 500 MG CPLT PO SCH ×3 (10:09→17:46)
[2016-12-17] MEDS: DOCUSATE SODIUM 50 MG/SENNA 8.6 MG TAB PO SCH ×2 (10:09→20:28)
--- NOTE | 2016-12-17 11:08 | HHI.PR ---
Subjective Remarks Patient seen today in follow-up for lumbar compression fracture, discussed with PT yesterday regarding back brace. She has received it. Discharge planning continues Pain controlled Objective Vitals Vital Signs Date Time Temp Pulse Resp B/P (MAP) Pulse Ox O2 Delivery O2 Flow Rate FiO2 12/17/16 08:00 96.8 63 16 139/63 (88) 95 12/16/16 20:00 98.2 77 24 161/80 (107) 96 12/16/16 16:00 96.1 73 12 130/64 (86) 92 12/16/16 12:00 97.8 68 18 136/79 (98) 94 I/O 12/16/16 12/16/16 12/16/16 12/17/16 12/17/16 12/17/16 07:00 15:00 23:00 07:00 15:00 23:00 Intake Total 106 ml 600 ml 480 ml Output Total 700 ml 400 ml Balance -700 ml 106 ml 600 ml 80 ml Intake Oral 600 ml 480 ml IV Total 106 ml Output Urine Total 700 ml 400 ml # Voids 2 2 # Bowel Movements 0 0 Result Diagram: 12/15/16 2336 12/15/162009 Imaging Last Impressions Lumbar Spine CT 12/15/164 Signed Impressions: Service Date/Time: Thursday, December 15, 2016 21:02 - CONCLUSION: New fracture superior posterior aspect of the L2 vertebral body with retropulsion of the superior posterior cortex into the canal yielding 1 cm localized spinal stenosis. Stable degenerative changes L3-S1 with degenerative disc disease and facet arthritic changes and a grade 1 spondylolisthesis L4 on L5 Lenny Contreras MD Thoracic Spine CT 12/15/161927 Signed Impressions: Service Date/Time: Thursday, December 15, 2016 21:02 - CONCLUSION: Mild anterior wedging T7 and T8 as described above with slight accentuated kyphosis and degenerative spurring at the levels above and below suggesting this represents remote compressions. On the lowest images there is concavity and cortical disruption of the superior vertebral endplate of L2 consistent with acute fracture Lenny Contreras MD Head CT 12/15/161927 Signed Impressions: Service Date/Time: Thursday, December 15, 2016 20:54 - CONCLUSION: Normal examination for a patient of this age. Lenny Contreras MD Abdomen/Pelvis CT 12/15/161927 Signed Impressions: Service Date/Time: Thursday, December 15, 2016 21:02 - CONCLUSION: No acute intra-abdominal or pelvic process with intact solid organs. Facet arthritic changes of lower lumbar spine with intact bony structures. Small umbilical hernia containing fat Lenny Contreras MD Chest CT 12/15/16 0000 Signed Impressions: Service Date/Time: Thursday, December 15, 2016 21:02 - CONCLUSION: No acute abnormality with intact bony structures. Coronary artery calcifications. Chronic pleural-parenchymal apical scarring.. Lenny Contreras MD Objective Remarks GENERAL: This is a well-nourished, well-developed patient, in no apparent distress. CARDIOVASCULAR: Regular rate and rhythm without murmurs, gallops, or rubs. RESPIRATORY: Clear to auscultation. Breath sounds equal bilaterally. No wheezes , rales, or rhonchi. GASTROINTESTINAL: Abdomen soft, non-tender, nondistended. Normal active bowel sounds MUSCULOSKELETAL: Extremities without clubbing, cyanosis, or edema. NEURO: Patient is alert, confused at baseline pleasant A/P Problem List: (1) Lumbar compression fracture ICD Code: S32.000A - Wedge compression fracture of unspecified lumbar vertebra , initial encounter for closed fracture Plan: Kyphoplasty high risk per neurosurgery Continue with supportive care and pain management with brace/TLSO (2) Dementia ICD Code: F03.90 - Unspecified dementia without behavioral disturbance Plan: Stable on home medications, in [facility]/memory care (3) CKD (chronic kidney disease) ICD Code: N18.9 - Chronic kidney disease, unspecified Plan: Per PCP, avoid further nephrotoxic injury and NSAIDs Assessment and Plan dc to [facility] w/ [facility] d/w daughter by phone Alyson Alexander MD Dec 17, 2016 11:08
--- NOTE | 2016-12-17 11:09 | HHI.FF ---
Face to Face Verification Diagnosis: (1) Lumbar compression fracture (2) Dementia Physical Therapy Order: Evaluate and Treat, Improve ambulation, Strength and gait training Instructions: 5 times week Home Health Nursing Order: Medical education Signs/symptoms of disease process Nursing assessment with vital signs I have seen patient Miesha Hernández on 12/17/16. My clinical findings support the need for the requested home health care services because: Med compliance is questionable Impaired cognition/judgement I certify that my clinical findings support that this patient is homebound because: Unsteady gait/balance Unsafe to leave home unassisted Pt 5 x week Alyson Alexander MD Dec 17, 2016 11:09
[2016-12-17] MEDS ORDERED: ULTR50TA5 PO (11:48)
[2016-12-17] MEDS ORDERED: ACET500T13 PO (11:48)
[2016-12-17] MEDS ORDERED: GNP8.6TA PO (11:48)
--- NOTE | 2016-12-17 11:51 | HHI.DS ---
cc: Zoraida Aldridge MD Discharge Summary Admission Date Dec 15, 2016 at 22:53 Discharge Date: Dec 17, 2016 Admitting Diagnosis fall, L2 fracture (1) Lumbar compression fracture ICD Code: S32.000A - Wedge compression fracture of unspecified lumbar vertebra , initial encounter for closed fracture (2) Dementia ICD Code: F03.90 - Unspecified dementia without behavioral disturbance (3) CKD (chronic kidney disease) ICD Code: N18.9 - Chronic kidney disease, unspecified Procedures none Brief History - From Admission This patient is a 86-year-old female with moderate dementia and chronic kidney disease. She was found at the assisted living facility having had a fall. She had some pain which was quite exquisite and was brought to the hospital where she was found to have a lumbar compression fracture. Subspecialty teams did recommend conservative care and the patient was treated with pain management and with back brace. CBC/BMP: 12/15/16 2336 12/15/162009 Significant Findings Laboratory Tests Test 12/15/16 20:10 12/15/16 23:36 Creatinine 1.10 MG/DL (0.50-1.00) Estimat Glomerular Filtration Rate 47 ML/MIN (>89) White Blood Count 12.7 TH/MM3 (4.0-11.0) Red Blood Count 3.56 MIL/MM3 (4.00-5.30) Hemoglobin 11.1 GM/DL (11.6-15.3) Hematocrit 32.8 % (35.0-46.0) Neutrophils (%) (Auto) 77.8 % (16.0-70.0) Neutrophils # (Auto) 9.9 TH/MM3 (1.8-7.7) Urine Specific [place] GREATER THAN 1.035 Urine Occult Blood TRACE (NEG) Imaging Last Impressions Lumbar Spine CT 12/15/16 5274 Signed Impressions: Service Date/Time: Thursday, December 15, 2016 21:02 - CONCLUSION: New fracture superior posterior aspect of the L2 vertebral body with retropulsion of the superior posterior cortex into the canal yielding 1 cm localized spinal stenosis. Stable degenerative changes L3-S1 with degenerative disc disease and facet arthritic changes and a grade 1 spondylolisthesis L4 on L5 Lenny Contreras MD Thoracic Spine CT 12/15/161927 Signed Impressions: Service Date/Time: Thursday, December 15, 2016 21:02 - CONCLUSION: Mild anterior wedging T7 and T8 as described above with slight accentuated kyphosis and degenerative spurring at the levels above and below suggesting this represents remote compressions. On the lowest images there is concavity and cortical disruption of the superior vertebral endplate of L2 consistent with acute fracture Lenny Contreras MD Head CT 12/15/161927 Signed Impressions: Service Date/Time: Thursday, December 15, 2016 20:54 - CONCLUSION: Normal examination for a patient of this age. Lenny Contreras MD Abdomen/Pelvis CT 12/15/161927 Signed Impressions: Service Date/Time: Thursday, December 15, 2016 21:02 - CONCLUSION: No acute intra-abdominal or pelvic process with intact solid organs. Facet arthritic changes of lower lumbar spine with intact bony structures. Small umbilical hernia containing fat Lenny Contreras MD Chest CT 12/15/16 0000 Signed Impressions: Service Date/Time: Thursday, December 15, 2016 21:02 - CONCLUSION: No acute abnormality with intact bony structures. Coronary artery calcifications. Chronic pleural-parenchymal apical scarring.. Lenny Contreras MD PE at Discharge GENERAL: This is a well-nourished, well-developed patient, in no apparent distress. CARDIOVASCULAR: Regular rate and rhythm without murmurs, gallops, or rubs. RESPIRATORY: Clear to auscultation. Breath sounds equal bilaterally. No wheezes , rales, or rhonchi. GASTROINTESTINAL: Abdomen soft, non-tender, nondistended. Normal active bowel sounds MUSCULOSKELETAL: Extremities without clubbing, cyanosis, or edema. NEURO: Patient is alert, confused at baseline pleasant Pt update on day of discharge Please see daily progress note Hospital Course Patient did have an evaluation for her lumbar compression fracture. Recommended for conservative management were obtained from neurosurgery by primary care provider. Patient did require some pain management as well as a TLSO. She had PT done while in the hospital. Overall she did well and was discharged back to her assisted living facility. Pt Condition on Discharge: Good Discharge Disposition: [facility] Discharge Time: > 30 minutes Discharge Instructions DIET: Follow Instructions for: As Tolerated, No Restrictions Activities you can perform: Regular-No Restrictions Other Activity Instructions: wear brace Follow up Referrals: PCP Follow-up - 1 Week New Medications: Acetaminophen (APAP Extra Strength) 500 Mg Tab 500 MG PO TID for Pain Management, #90 TAB Sennosides (Gnp Senna-Lax) 8.6 Mg Tab 17.2 MG PO Q12H PRN for Moderate constipation, #30 TAB Tramadol (Ultram) 50 Mg Tab 50 MG PO Q8H PRN for PAIN SCALE 5-10/SEVERE COUGH, #60 TAB Continued Medications: Citalopram (Citalopram) 20 Mg Tab 20 MG PO DAILY for Control Depression, #30 TAB 0 Refills Memantine Er (Namenda Xr) 28 Mg Caper 28 MG PO DAILY for Alzheimer Disease, #30 CAP 0 Refills Alyson Alexander MD Dec 17, 2016 11:51
[2016-12-17 12:00] VITALS: BP 141/64; PULSE 59; RESP 16; TEMP 97; O2SAT 96
[2016-12-17 16:00] VITALS: BP 112/53; PULSE 69; RESP 16; TEMP 96.7; O2SAT 98
[2016-12-17] MEDS: traMADol HCL 50 MG TAB PO SCH (17:46)
[2016-12-17] MEDS: SODIUM CHLOR 0.9% 1000 ML INJ 1,000 ML IV SCH (17:46)
[2016-12-17 20:00] VITALS: BP 120/56; PULSE 72; RESP 18; TEMP 97.7; O2SAT 94
[2016-12-18] VITALS: BP 137/66; PULSE 78; RESP 18; TEMP 97; O2SAT 93
[2016-12-18] MEDS: traMADol HCL 50 MG TAB PO SCH ×3 (02:12→17:41)
[2016-12-18] MEDS: SODIUM CHLOR 0.9% 1000 ML INJ 1,000 ML IV SCH ×2 (03:31→13:36)
[2016-12-18 08:00] VITALS: BP 119/55; PULSE 68; RESP 18; TEMP 96.7; O2SAT 96
[2016-12-18] MEDS: CITALOPRAM HYDROBROMIDE 20 MG TAB PO SCH (08:53)
[2016-12-18] MEDS: ACETAMINOPHEN 500 MG CPLT PO SCH ×2 (08:54→13:35)
[2016-12-18] MEDS: DOCUSATE SODIUM 50 MG/SENNA 8.6 MG TAB PO SCH (08:54)
[2016-12-18] MEDS: SODIUM CHLORIDE 0.9% FLUSH 10 ML FLUSH IV FLUSH SCH ×2 (08:55→20:10)
[2016-12-18] MEDS: ENOXAPARIN SODIUM 40 MG/0.4 ML SYRINGE SQ SCH (09:00)
[2016-12-18 09:42] LABS: AUTOMATED NEUTROPHIL # 4.4 TH/MM3 (1.8-7.7); BASOPHIL # 0.1 TH/MM3 (0-0.2); BASOPHIL % 0.9 % (0.0-2.0); EOSINOPHIL # 0.4 TH/MM3 (0-0.4); EOSINOPHIL % 5.2 % (0.0-4.0); HEMATOCRIT 31.8 % (35.0-46.0); HEMO FLAGS DIFF FINAL; LYMPH % 24.5 % (9.0-44.0); LYMPHOCYTE # 1.9 TH/MM3 (1.0-4.8); MEAN CELL VOLUME 93.1 FL (80.0-100.0); MEAN CORPUSCULAR HEMOGLOBIN 29.8 PG (27.0-34.0); MONO % 11.2 % (0.0-8.0); NEUT % 58.2 % (16.0-70.0); PLATELET COUNT 208 TH/MM3 (150-450); RED BLOOD COUNT 3.41 MIL/MM3 (4.00-5.30); RED CELL DISTRIBUTION WIDTH 13.5 % (11.6-17.2); WHITE BLOOD COUNT 7.7 TH/MM3 (4.0-11.0)
[2016-12-18 10:00] LABS: POTASSIUM 3.8 MEQ/L (3.5-5.1)
[2016-12-18 12:00] VITALS: BP 108/53; PULSE 73; RESP 18; TEMP 97.2; O2SAT 93
--- NOTE | 2016-12-18 12:05 | HHI.PR ---
Subjective Remarks Patient seen and evaluated in follow-up for discharge planning. Patient poorly ambulatory and pain is uncontrolled. Patient discharge is been held to evaluate again for rehabilitation placement. Patient appeared quite dehydrated and with uncontrolled pain requiring repeated doses of pain management. She required IV hydration. Objective Vitals Vital Signs Date Time Temp Pulse Resp B/P (MAP) Pulse Ox O2 Delivery O2 Flow Rate FiO2 12/18/16 08:00 96.7 68 18 119/55 (76) 96 12/18/16 00:00 97.0 78 18 137/66 (89) 93 12/17/16 20:00 97.7 72 18 120/56 (77) 94 12/17/16 16:00 96.7 69 16 112/53 (72) 98 I/O 12/17/16 12/17/16 12/17/16 12/18/16 12/18/16 12/18/16 07:00 15:00 23:00 07:00 15:00 23:00 Intake Total 480 ml 300 ml 120 ml Output Total 400 ml Balance 80 ml 300 ml 120 ml Intake Oral 480 ml 300 ml 120 ml Output Urine Total 400 ml # Voids 2 4 1 # Bowel Movements 0 0 Result Diagram: 12/18/16 0910 12/18/1610 Objective Remarks GENERAL: This is a well-nourished, well-developed patient, in no apparent distress. CARDIOVASCULAR: Regular rate and rhythm without murmurs, gallops, or rubs. RESPIRATORY: Clear to auscultation. Breath sounds equal bilaterally. No wheezes , rales, or rhonchi. GASTROINTESTINAL: Abdomen soft, non-tender, nondistended. Normal active bowel sounds MUSCULOSKELETAL: Extremities without clubbing, cyanosis, or edema. NEURO: Patient is alert, confused at baseline pleasant Procedures none A/P Problem List: (1) Lumbar compression fracture ICD Code: S32.000A - Wedge compression fracture of unspecified lumbar vertebra , initial encounter for closed fracture Plan: Kyphoplasty high risk per neurosurgery Continue with supportive care and pain management with brace/TLSO Tramadol low dose to avoid, patient in the elderly and with renal insufficiency (2) Dementia ICD Code: F03.90 - Unspecified dementia without behavioral disturbance Plan: Stable on home medications, in [facility]/memory care with malnutrition and dehydration, continue to follow. Status post IV fluids (3) CKD (chronic kidney disease) ICD Code: N18.9 - Chronic kidney disease, unspecified Plan: Per PCP, avoid further nephrotoxic injury and NSAIDs Improved with IV hydration, likely prerenal secondary to severe dehydration Assessment and Plan dc to snf when stable d/w daughter by phone Alyson Alexander MD Dec 18, 2016 12:05
[2016-12-18 16:00] VITALS: BP 124/64; PULSE 77; RESP 18; TEMP 98.1; O2SAT 92
[2016-12-18] MEDS ORDERED: ACETAMINOPHEN 500 MG CPLT PO PRN (17:45)
[2016-12-18 20:00] VITALS: BP 148/67; PULSE 76; RESP 18; TEMP 96.9; O2SAT 93
[2016-12-18] MEDS: SENNOSIDES 8.6 MG TAB PO SCH (20:10)
[2016-12-19] VITALS: BP 158/76; PULSE 78; RESP 18; TEMP 97.6; O2SAT 92
[2016-12-19] MEDS: traMADol HCL 50 MG TAB PO SCH ×3 (02:10→17:20)
[2016-12-19 08:00] VITALS: BP 159/74; PULSE 68; RESP 18; TEMP 97; O2SAT 93
[2016-12-19] MEDS: ENOXAPARIN SODIUM 40 MG/0.4 ML SYRINGE SQ SCH (08:31)
[2016-12-19] MEDS: SENNOSIDES 8.6 MG TAB PO SCH ×2 (08:32→21:12)
[2016-12-19] MEDS: SODIUM CHLORIDE 0.9% FLUSH 10 ML FLUSH IV FLUSH SCH ×3 (08:32→21:09)
[2016-12-19] MEDS: CITALOPRAM HYDROBROMIDE 20 MG TAB PO SCH (08:32)
--- NOTE | 2016-12-19 08:43 | HHI.PR ---
Subjective Remarks Patient seen and evaluated today in follow-up for lumbar fracture, pain better controlled. Renal function improved. Still no bowel movement Objective Vitals Vital Signs Date Time Temp Pulse Resp B/P (MAP) Pulse Ox O2 Delivery O2 Flow Rate FiO2 12/19/16 00:00 97.6 78 18 158/76 (103) 92 12/18/16 20:00 96.9 76 18 148/67 (94) 93 12/18/16 16:00 98.1 77 18 124/64 (84) 92 12/18/16 12:00 97.2 73 18 108/53 (71) 93 I/O 12/18/16 12/18/16 12/18/16 12/19/16 12/19/16 12/19/16 07:00 15:00 23:00 07:00 15:00 23:00 Intake Total 120 ml 892 ml 885 ml 0 ml Balance 120 ml 892 ml 885 ml 0 ml Intake Oral 120 ml 480 ml 0 ml IV Total 892 ml 405 ml # Voids 1 4 3 Result Diagram: 12/18/1690912/18/16909 Objective Remarks GENERAL: This is a well-nourished, well-developed patient, in no apparent distress. CARDIOVASCULAR: Regular rate and rhythm without murmurs, gallops, or rubs. RESPIRATORY: Clear to auscultation. Breath sounds equal bilaterally. No wheezes , rales, or rhonchi. GASTROINTESTINAL: Abdomen soft, non-tender, nondistended. Normal active bowel sounds MUSCULOSKELETAL: Extremities without clubbing, cyanosis, or edema. NEURO: Patient is alert, confused at baseline pleasant Procedures none A/P Problem List: (1) Lumbar compression fracture ICD Code: S32.000A - Wedge compression fracture of unspecified lumbar vertebra , initial encounter for closed fracture Plan: Kyphoplasty high risk per neurosurgery Continue with supportive care and pain management with brace/TLSO Tramadol low dose to avoid increased side effects in patient who is elderly and with renal insufficiency (2) Dementia ICD Code: F03.90 - Unspecified dementia without behavioral disturbance Plan: Stable on home medications, in [facility]/memory care with malnutrition and dehydration, continue to follow. (3) CKD (chronic kidney disease) ICD Code: N18.9 - Chronic kidney disease, unspecified Plan: Per PCP, avoid further nephrotoxic injury and NSAIDs Improved with IV hydration, likely prerenal secondary to severe dehydration Assessment and Plan dc to snf when stable d/w daughter in room yesterday Alyson Alexander MD Dec 19, 2016 08:43
[2016-12-19] MEDS ORDERED: MAGNESIUM HYDROXIDE SUSP 30 ML CUP PO ONE (08:45)
[2016-12-19 12:00] VITALS: BP 114/53; PULSE 84; RESP 18; TEMP 97; O2SAT 92
[2016-12-19 18:00] VITALS: BP 122/60; PULSE 80; RESP 18; TEMP 97.7; O2SAT 93
[2016-12-19 20:00] VITALS: BP 144/68; PULSE 77; RESP 17; TEMP 97.8; O2SAT 93
[2016-12-20] VITALS: BP 133/67; PULSE 78; RESP 18; TEMP 97.8; O2SAT 93
[2016-12-20] MEDS: traMADol HCL 50 MG TAB PO SCH ×3 (02:13→17:13)
[2016-12-20 08:00] VITALS: BP 130/67; PULSE 60; RESP 24; TEMP 96.8; O2SAT 92
[2016-12-20] MEDS: SODIUM CHLORIDE 0.9% FLUSH 10 ML FLUSH IV FLUSH SCH ×3 (09:00→21:52)
[2016-12-20] MEDS: SENNOSIDES 8.6 MG TAB PO SCH ×2 (10:07→21:50)
[2016-12-20] MEDS: CITALOPRAM HYDROBROMIDE 20 MG TAB PO SCH (10:07)
[2016-12-20] MEDS: ENOXAPARIN SODIUM 40 MG/0.4 ML SYRINGE SQ SCH (10:07)
--- NOTE | 2016-12-20 10:23 | HHI.PR ---
Subjective Remarks patient seen in follow up for D/C plans No events await BM Objective Vitals Vital Signs Date Time Temp Pulse Resp B/P (MAP) Pulse Ox O2 Delivery O2 Flow Rate FiO2 12/20/16 08:00 96.8 60 24 130/67 (88) 92 12/20/16 00:00 97.8 78 18 133/67 (89) 93 12/19/16 20:00 97.8 77 17 144/68 (93) 93 12/19/16 18:00 97.7 80 18 122/60 (80) 93 12/19/16 12:00 97.0 84 18 114/53 (73) 92 I/O 12/19/16 12/19/16 12/19/16 12/20/16 12/20/16 12/20/16 07:00 15:00 23:00 07:00 15:00 23:00 Intake Total 0 ml 480 ml 360 ml Balance 0 ml 480 ml 360 ml Intake Oral 0 ml 480 ml 360 ml # Voids 3 5 Result Diagram: 12/18/1690912/18/16909 Objective Remarks GENERAL: This is a well-nourished, well-developed patient, in no apparent distress. CARDIOVASCULAR: Regular rate and rhythm without murmurs, gallops, or rubs. RESPIRATORY: Clear to auscultation. Breath sounds equal bilaterally. No wheezes , rales, or rhonchi. GASTROINTESTINAL: Abdomen soft, non-tender, nondistended. Normal active bowel sounds MUSCULOSKELETAL: Extremities without clubbing, cyanosis, or edema. NEURO: Patient is alert, confused at baseline pleasant Procedures none A/P Problem List: (1) Lumbar compression fracture ICD Code: S32.000A - Wedge compression fracture of unspecified lumbar vertebra , initial encounter for closed fracture Plan: Kyphoplasty high risk per neurosurgery Continue with supportive care and pain management with brace/TLSO Tramadol low dose to avoid increased side effects in patient who is elderly and with renal insufficiency (2) Dementia ICD Code: F03.90 - Unspecified dementia without behavioral disturbance Plan: Stable on home medications, in [facility]/memory care with malnutrition and dehydration, continue to follow. (3) CKD (chronic kidney disease) ICD Code: N18.9 - Chronic kidney disease, unspecified Plan: Per PCP, avoid further nephrotoxic injury and NSAIDs Improved with IV hydration, likely prerenal secondary to severe dehydration (4) Constipation ICD Code: K59.00 - Constipation, unspecified Plan: add MOM Assessment and Plan dc to snf Alyson Alexander MD Dec 20, 2016 10:23
[2016-12-20] MEDS ORDERED: MAGNESIUM HYDROXIDE SUSP 30 ML CUP PO ONE (10:30)
[2016-12-20 12:00] VITALS: BP 126/70; PULSE 75; RESP 21; TEMP 96.9; O2SAT 94
[2016-12-20 16:00] VITALS: BP 138/76; PULSE 65; RESP 18; TEMP 97.8; O2SAT 95
[2016-12-20] MEDS ORDERED: LACTULOSE SYRUP 20 GM/30 ML CUP PO ONE (17:00)
[2016-12-20 20:00] VITALS: BP 139/79; PULSE 70; RESP 17; TEMP 98; O2SAT 92
[2016-12-21] VITALS: BP 142/79; PULSE 82; RESP 18; TEMP 96.8; O2SAT 91
--- NOTE | 2016-12-21 02:13 | RADRPT ---
EXAM DATE/TIME: 12/21/2016 01:13 [facility] COMPARISON: CT THORAX W CONTRAST, December 15, 2016, 21:02. INDICATIONS : Shortness of breath. MEDICAL HISTORY : None. SURGICAL HISTORY : None. ENCOUNTER: Initial ACUITY: 1 day PAIN SCORE: Non-responsive. LOCATION: Bilateral chest FINDINGS: A single view of the chest demonstrates the lungs to be symmetrically aerated without evidence of mas s, infiltrate or effusion. Mild cardiomegaly. The cardiomediastinal contours are unremarkable. Left ninth rib fracture. CONCLUSION: No infiltrate. Vargas Jonas MD on December 21, 2016 at 2:10 Board Certified Radiologist. This report was verified electronically.
--- NOTE | 2016-12-21 02:16 | RADRPT ---
EXAM DATE/TIME: 12/21/2016 01:16 [facility] COMPARISON: No previous studies available for comparison. INDICATIONS : Distention. MEDICAL HISTORY : None. SURGICAL HISTORY : Hysterectomy. ENCOUNTER: Initial ACUITY: 1 day PAIN SCORE: Non-responsive. LOCATION: abdomen, all quadrants. FINDINGS: Supine view of the abdomen was performed. Gaseous distention of bowel loops in the right midabdomen. No abnormal masses, calcifications, or organomegaly is seen. The osseous structures are unremarkabl e. CONCLUSION: Gaseous distention of bowel loops. Vargas Jonas MD on December 21, 2016 at 2:14 Board Certified Radiologist. This report was verified electronically.
[2016-12-21] MEDS: traMADol HCL 50 MG TAB PO SCH ×3 (03:41→18:34)
[2016-12-21 08:00] VITALS: BP 138/87; PULSE 56; RESP 18; TEMP 98.1; O2SAT 95
[2016-12-21] MEDS: SENNOSIDES 8.6 MG TAB PO SCH ×2 (09:43→21:06)
[2016-12-21] MEDS: CITALOPRAM HYDROBROMIDE 20 MG TAB PO SCH (09:43)
[2016-12-21] MEDS: ENOXAPARIN SODIUM 40 MG/0.4 ML SYRINGE SQ SCH (09:45)
[2016-12-21 12:00] VITALS: BP 130/80; PULSE 60; RESP 18; TEMP 98; O2SAT 95
[2016-12-21] MEDS ORDERED: LACTULOSE SYRUP 20 GM/30 ML CUP PO ONE (14:15)
[2016-12-21] MEDS ORDERED: POLYETHYLENE GLYCOL 17 GM PKG PO ONE (14:15)
[2016-12-21] MEDS ORDERED: BISACODYL EC 5 MG TABEC PO ONE (14:15)
[2016-12-21] MEDS ORDERED: MINERAL OIL ENEMA 118 ML BTL RECTAL ONE (14:15)
--- NOTE | 2016-12-21 14:17 | HHI.PR ---
Subjective Remarks The pt was resting comfortably in bed. No acute complaints. Still has not had a bowel movement. Discussed with nursing. Objective Vitals Vital Signs Date Time Temp Pulse Resp B/P (MAP) Pulse Ox O2 Delivery O2 Flow Rate FiO2 12/21/16 12:00 98.0 60 18 130/80 (97) 95 12/21/16 08:00 98.1 56 18 138/87 (104) 95 12/21/16 00:00 96.8 82 18 142/79 (100) 91 12/20/16 20:00 98.0 70 17 139/79 (99) 92 12/20/16 16:00 97.8 65 18 138/76 (96) 95 I/O 12/20/16 12/20/16 12/20/16 12/21/16 12/21/16 12/21/16 07:00 15:00 23:00 07:00 15:00 23:00 Intake Total 360 ml 360 ml Output Total 200 ml Balance 360 ml 360 ml -200 ml Intake Oral 360 ml 360 ml Output Urine Total 200 ml # Voids 5 0 1 1 # Bowel Movements 0 Result Diagram: 12/18/16 0910 12/18/16 0910 Imaging Last Impressions Chest X-Ray 12/21/16 0000 Signed Impressions: Service Date/Time: Wednesday, December 21, 2016 01:13 - CONCLUSION: No infiltrate. Vargas Jonas MD Abdomen X-Ray 12/21/16 0000 Signed Impressions: Service Date/Time: Wednesday, December 21, 2016 01:16 - CONCLUSION: Gaseous distention of bowel loops. Vargas Jonas MD Lumbar Spine CT 12/15/16 2031 Signed Impressions: Service Date/Time: Thursday, December 15, 2016 21:02 - CONCLUSION: New fracture superior posterior aspect of the L2 vertebral body with retropulsion of the superior posterior cortex into the canal yielding 1 cm localized spinal stenosis. Stable degenerative changes L3-S1 with degenerative disc disease and facet arthritic changes and a grade 1 spondylolisthesis L4 on L5 Lenny Contreras MD Thoracic Spine CT 12/15/168 Signed Impressions: Service Date/Time: Thursday, December 15, 2016 21:02 - CONCLUSION: Mild anterior wedging T7 and T8 as described above with slight accentuated kyphosis and degenerative spurring at the levels above and below suggesting this represents remote compressions. On the lowest images there is concavity and cortical disruption of the superior vertebral endplate of L2 consistent with acute fracture Lenny Contreras MD Head CT 12/15/161927 Signed Impressions: Service Date/Time: Thursday, December 15, 2016 20:54 - CONCLUSION: Normal examination for a patient of this age. Lenny Contreras MD Abdomen/Pelvis CT 12/15/161927 Signed Impressions: Service Date/Time: Thursday, December 15, 2016 21:02 - CONCLUSION: No acute intra-abdominal or pelvic process with intact solid organs. Facet arthritic changes of lower lumbar spine with intact bony structures. Small umbilical hernia containing fat Lenny Contreras MD Chest CT 12/15/16 0000 Signed Impressions: Service Date/Time: Thursday, December 15, 2016 21:02 - CONCLUSION: No acute abnormality with intact bony structures. Coronary artery calcifications. Chronic pleural-parenchymal apical scarring.. Lenny Contreras MD Objective Remarks GENERAL: This is a well-nourished, well-developed patient, in no apparent distress. HEENT: NC, AT. CARDIOVASCULAR: Regular rate and rhythm without murmurs, gallops, or rubs. RESPIRATORY: Clear to auscultation. Breath sounds equal bilaterally. No wheezes , rales, or rhonchi. GASTROINTESTINAL: Abdomen soft, non-tender, nondistended. Normal active bowel sounds. MUSCULOSKELETAL: Extremities without clubbing, cyanosis, or edema. NEURO: Patient is alert, confused at baseline pleasant. Procedures none Medications and IVs Current Medications Medications (Trade) Dose Ordered Sig/Vince Route Start Time Stop Time Status Last Admin (NS Flush) 2 ml UNSCH PRN IV FLUSH 12/15/16 23:00 (NS Flush) 2 ml BID IV FLUSH 12/16/16 09:00 12/18/16 20:10 (Tylenol) 650 mg Q4H PRN PO 12/15/16 23:00 12/16/16 17:15 (Narcan Inj) 0.4 mg UNSCH PRN IV PUSH 12/15/16 23:00 (Nadia-Colace) 1 tab BID PO 12/16/16 09:00 Future Hold 12/18/16 08:54 Patient Own Medication PT OWN MED:NON-FORMULARY DRUG (Memant... DAILY PO 12/16/16 09:00 Future Hold (CeleXA) 10 mg DAILY PO 12/17/16 09:00 12/21/16 09:43 (Ultram) 25 mg Q8H PO 12/17/16 18:00 12/21/16 09:45 (Lovenox Inj) 40 mg Q24H SQ 12/18/16 09:00 12/21/16 09:45 (Tylenol) 500 mg TID PRN PO 12/18/16 17:45 (Senokot) 17.2 mg Q12HR PO 12/18/16 21:00 12/21/16 09:43 A/P Problem List: (1) Lumbar compression fracture ICD Code: S32.000A - Wedge compression fracture of unspecified lumbar vertebra , initial encounter for closed fracture (2) Dementia ICD Code: F03.90 - Unspecified dementia without behavioral disturbance (3) CKD (chronic kidney disease) ICD Code: N18.9 - Chronic kidney disease, unspecified (4) Constipation ICD Code: K59.00 - Constipation, unspecified Assessment and Plan Lumbar compression fracture Kyphoplasty high risk per neurosurgery. - Continue with supportive care and pain management with brace/TLSO. - Tramadol low dose to avoid increased side effects in patient who is elderly and with renal insufficiency. Constipation KUB with dilated bowel loops. + BS. - increase bowel regimen. Enema if needed. - KUB in AM. Dementia Stable on home medications, in [facility]/memory care. - continue home regimen. CKD (chronic kidney disease) Per PCP. - avoid further nephrotoxic injury and NSAIDs. - Improved with IV hydration, likely prerenal secondary to severe dehydration. PPx: Lovenox Discharge Planning D/c when pt has had a bowel movement John Freeman DO Dec 21, 2016 14:17
[2016-12-21 16:00] VITALS: BP 124/65; PULSE 65; RESP 16; TEMP 98.2; O2SAT 97
[2016-12-21 20:00] VITALS: BP 163/74; PULSE 79; RESP 18; TEMP 97.9; O2SAT 96
[2016-12-21] MEDS: SODIUM CHLORIDE 0.9% FLUSH 10 ML FLUSH IV FLUSH SCH (21:04)
[2016-12-22] VITALS: BP 177/71; PULSE 76; RESP 18; TEMP 96.5; O2SAT 94
[2016-12-22] MEDS: traMADol HCL 50 MG TAB PO SCH ×2 (02:22→10:02)
[2016-12-22 04:00] VITALS: BP 148/67; PULSE 72; RESP 18; TEMP 96.3; O2SAT 94
--- NOTE | 2016-12-22 05:22 | RADRPT ---
EXAM DATE/TIME: 12/22/2016 04:58 [facility] COMPARISON: ABDOMEN KUB ONLY, December 21, 2016, 1:16. INDICATIONS : Abdominal pain and distention. MEDICAL HISTORY : None. SURGICAL HISTORY : Hysterectomy. ENCOUNTER: Subsequent ACUITY: 2 days PAIN SCORE: Non-responsive. LOCATION: all quadrants. FINDINGS: Supine view of the abdomen was performed. Gaseous distention of multiple bowel loops, less prominent. No abnormal masses, calcifications, or organomegaly is seen. The osseous structures are unremarkab le. CONCLUSION: Gaseous distention of multiple bowel loops but less prominent on current study. Vargas Jonas MD on December 22, 2016 at 5:20 Board Certified Radiologist. This report was verified electronically.
[2016-12-22 08:00] VITALS: BP 150/68; PULSE 71; RESP 16; TEMP 97.6; O2SAT 96
[2016-12-22] MEDS: SODIUM CHLORIDE 0.9% FLUSH 10 ML FLUSH IV FLUSH SCH (09:00)
[2016-12-22] MEDS: CITALOPRAM HYDROBROMIDE 20 MG TAB PO SCH (10:02)
[2016-12-22] MEDS: SENNOSIDES 8.6 MG TAB PO SCH (10:02)
[2016-12-22] MEDS: ENOXAPARIN SODIUM 40 MG/0.4 ML SYRINGE SQ SCH (10:03)
[2016-12-22 12:00] VITALS: BP 144/73; PULSE 72; RESP 16; TEMP 97.4; O2SAT 96
[2016-12-22] MEDS ORDERED: MIRA3350 PO (12:15)
[2016-12-22] MEDS ORDERED: ULTR50TA5 PO (12:17)
--- NOTE | 2016-12-22 12:18 | HHI.PR ---
Subjective Remarks The patient was resting comfortably in bed. She had no acute complaints. She was excited about leaving the hospital. Discussed with nursing. The patient did have a bowel movement. Objective Vitals Vital Signs Date Time Temp Pulse Resp B/P (MAP) Pulse Ox O2 Delivery O2 Flow Rate FiO2 12/22/16 08:00 97.6 71 16 150/68 (95) 96 12/22/16 04:00 96.3 72 18 148/67 (94) 94 12/22/16 00:00 96.5 76 18 177/71 (106) 94 12/21/16 20:00 97.9 79 18 163/74 (103) 96 12/21/16 16:00 98.2 65 16 124/65 (84) 97 I/O 12/21/16 12/21/16 12/21/16 12/22/16 12/22/16 12/22/16 07:00 15:00 23:00 07:00 15:00 23:00 Intake Total 0 ml Balance 0 ml Intake Oral 0 ml # Voids 1 3 2 # Bowel Movements 1 Result Diagram: 12/18/16 0910 12/18/16 0910 Imaging Last Impressions Abdomen X-Ray 12/22/16 0600 Signed Impressions: Service Date/Time: Thursday, December 22, 2016 04:58 - CONCLUSION: Gaseous distention of multiple bowel loops but less prominent on current study. Vargas Jonas MD Chest X-Ray 12/21/16 0000 Signed Impressions: Service Date/Time: Wednesday, December 21, 2016 01:13 - CONCLUSION: No infiltrate. Vargas Jonas MD Lumbar Spine CT 12/15/16 4054 Signed Impressions: Service Date/Time: Thursday, December 15, 2016 21:02 - CONCLUSION: New fracture superior posterior aspect of the L2 vertebral body with retropulsion of the superior posterior cortex into the canal yielding 1 cm localized spinal stenosis. Stable degenerative changes L3-S1 with degenerative disc disease and facet arthritic changes and a grade 1 spondylolisthesis L4 on L5 Lenny Contreras MD Thoracic Spine CT 12/15/16 1928 Signed Impressions: Service Date/Time: Thursday, December 15, 2016 21:02 - CONCLUSION: Mild anterior wedging T7 and T8 as described above with slight accentuated kyphosis and degenerative spurring at the levels above and below suggesting this represents remote compressions. On the lowest images there is concavity and cortical disruption of the superior vertebral endplate of L2 consistent with acute fracture Lenny Contreras MD Head CT [id number]/15/[id number] Signed Impressions: Service Date/Time: Thursday, December 15, 2016 20:54 - CONCLUSION: Normal examination for a patient of this age. Lenny Contreras MD Abdomen/Pelvis CT [id number]/15/[id number] Signed Impressions: Service Date/Time: Thursday, December 15, 2016 21:02 - CONCLUSION: No acute intra-abdominal or pelvic process with intact solid organs. Facet arthritic changes of lower lumbar spine with intact bony structures. Small umbilical hernia containing fat Lenny Contreras MD Chest CT 12/15/16 0000 Signed Impressions: Service Date/Time: Thursday, December 15, 2016 21:02 - CONCLUSION: No acute abnormality with intact bony structures. Coronary artery calcifications. Chronic pleural-parenchymal apical scarring.. Lenny Contreras MD Objective Remarks GENERAL: This is a well-nourished, well-developed patient, in no apparent distress. HEENT: NC, AT. CARDIOVASCULAR: Regular rate and rhythm without murmurs, gallops, or rubs. RESPIRATORY: Clear to auscultation. Breath sounds equal bilaterally. No wheezes , rales, or rhonchi. GASTROINTESTINAL: Abdomen soft, non-tender, nondistended. Normal active bowel sounds. MUSCULOSKELETAL: Extremities without clubbing, cyanosis, or edema. NEURO: Patient is alert. Moves upper and lower extremities. PSYCH: Mood and affect appropriate. Procedures none Medications and IVs Current Medications Medications (Trade) Dose Ordered Sig/Vince Route Start Time Stop Time Status Last Admin (NS Flush) 2 ml UNSCH PRN IV FLUSH 12/15/16 23:00 (NS Flush) 2 ml BID IV FLUSH 12/16/16 09:00 12/18/16 20:10 (Tylenol) 650 mg Q4H PRN PO 12/15/16 23:00 12/16/16 17:15 (Narcan Inj) 0.4 mg UNSCH PRN IV PUSH 12/15/16 23:00 (Nadia-Colace) 1 tab BID PO 12/16/16 09:00 Future Hold 12/18/16 08:54 Patient Own Medication PT OWN MED:NON-FORMULARY DRUG (Memant... DAILY PO 12/16/16 09:00 Future Hold (CeleXA) 10 mg DAILY PO 12/17/16 09:00 12/22/16 10:02 (Ultram) 25 mg Q8H PO 12/17/16 18:00 12/22/16 10:02 (Lovenox Inj) 40 mg Q24H SQ 12/18/16 09:00 12/22/16 10:03 (Tylenol) 500 mg TID PRN PO 12/18/16 17:45 (Senokot) 17.2 mg Q12HR PO 12/18/16 21:00 12/22/16 10:02 A/P Problem List: (1) Lumbar compression fracture ICD Code: S32.000A - Wedge compression fracture of unspecified lumbar vertebra , initial encounter for closed fracture (2) Dementia ICD Code: F03.90 - Unspecified dementia without behavioral disturbance (3) CKD (chronic kidney disease) ICD Code: N18.9 - Chronic kidney disease, unspecified (4) Constipation ICD Code: K59.00 - Constipation, unspecified Assessment and Plan Lumbar compression fracture Kyphoplasty high risk per neurosurgery. - Continue with supportive care and pain management with brace/TLSO. - Tramadol low dose to avoid increased side effects in patient who is elderly and with renal insufficiency. - outpt follow-up as needed. Constipation KUB with dilated bowel loops. + BS. - increase bowel regimen. Enema if needed. Has had a bowel movement. - KUB in AM. Improved. - d/c on Miralax. Dementia Stable on home medications, in [facility]/memory care. - continue home regimen. CKD (chronic kidney disease) Per PCP. - avoid further nephrotoxic injury and NSAIDs. - Improved with IV hydration, likely prerenal secondary to severe dehydration. PPx: Lovenox Discharge Planning D/c when pt has had a bowel movement John Freeman DO Dec 22, 2016 12:18
== END 2016-12-22 13:44 | DRG 552 ==
LOC: PHEFT 18:16 → PHEDA 22:53 → PH3A 12-16 00:58 → OBSVTOIN 12-17 16:06
PROVIDERS: ADMIT Hospitalist; ATTEND Hospitalist
DX: S32.020A Wedge compression fracture of second lumbar vertebra, initial encounter for closed fracture (principal); E46 Unspecified protein-calorie malnutrition; F03.90 Unspecified dementia, unspecified severity, without behavioral disturbance, psychotic disturbance, mood disturbance, and anxiety; Z66 Do not resuscitate; N18.9 Chronic kidney disease, unspecified; E86.0 Dehydration; H35.30 Unspecified macular degeneration; K59.00 Constipation, unspecified; M81.0 Age-related osteoporosis without current pathological fracture; F32.9 Major depressive disorder, single episode, unspecified; M19.90 Unspecified osteoarthritis, unspecified site; Z23 Encounter for immunization; Z86.14 Personal history of Methicillin resistant Staphylococcus aureus infection; Z85.828 Personal history of other malignant neoplasm of skin
CPT/HCPCS: 70450; 71010; 71260; 72128; 72131; 74000; 74177; 80048; 81001; 82565; 85025; 90471; 90686; 94150; G0008; G8987-GP; G8988-GP; J1650; J3480; J7030; L0200; L0484; Q2038; Q9967

== ENCOUNTER 2017-02-02 14:47 | Observation (INO) | payer MEDICARE ==
[~2017-02-02] VITALS: Ht 162.6 cm; Wt 55.0 kg
[~2017-02-02 14:47] MED LIST changes: +ACET500T13 PO; +GNP8.6TA PO; +MIRA3350 PO; +TRAM50 PO
[2017-02-02 15:15] VITALS: BP 135/76; PULSE 70; RESP 18; TEMP 98.2; O2SAT 97
--- NOTE | 2017-02-02 15:32 | PD ---
HPI Chief Complaint: cough, possible chicken stuck in esophagus Time Seen by Provider: 15:14 Travel History International Travel<30 days: No Contact w/Intl Traveler<30days: No History of Present Illness HPI 86 year old female presents to the emergency department by EMS from [facility] for evaluation after she choked on a piece of chicken. According to EMS, the patient choked on a piece of chicken around noon today. Then, around 3pm, she started with a cough with mucous. The patient has a history of dementia and in noncontributory with history and physical. Patient denies any complaints to me. She denies any headache. No fevers or chills. She denies any chest pain or shortness breath. No abdominal pain. No nausea, vomiting, diarrhea. The patient is able to drink water without difficulty. No exacerbating or alleviating factors. Moderate severity. PFSH Past Medical History Depression: Yes Dementia: Yes Diminished Hearing: No Endocrine: No Immune Disorder: No Past Surgical History Eye Surgery: Yes Hysterectomy: Yes Social History Alcohol Use: No Tobacco Use: No Substance Use: No Allergies-Medications (Allergen,Severity, Reaction): Coded Allergies: No Known Allergies (Unverified Adverse Reaction, Unknown, 02/02/17) Reported Meds & Prescriptions Reported Meds & Active Scripts Active Miralax Powder (Polyethylene Glycol 3350 Powder) 17 Gm Powd 17 Gm PO DAILY Mix and dissolve one measuring cap-ful (17 grams) in water or juice. APAP Extra Strength (Acetaminophen) 500 Mg Tab 500 Mg PO TID Reported Catie-Pat Rx (B-Complex W/ C & Folic Acid) 1 Tab 1 Tab PO DAILY Namenda Xr (Memantine) 28 Mg Caper 28 Mg PO DAILY Citalopram (Citalopram Hydrobromide) 20 Mg Tab 20 Mg PO DAILY Review of Systems Except as stated in HPI: all other systems reviewed are Neg Physical Exam Narrative GENERAL: Well-nourished, well-developed elderly female patient, afebrile. SKIN: Focused skin assessment warm/dry. HEAD: Normocephalic. Atraumatic ENT: Mucosa pink and moist. No erythema or exudates. No uvular edema. No uvular , palatal, or tonsillar deviation. Airway patent. Nasal turbinates appear normal without nasal blood, purulent drainage or septal hematoma. EYES: No scleral icterus. No injection or drainage. NECK: Supple, trachea midline. No JVD or lymphadenopathy. CARDIOVASCULAR: Regular rate and rhythm without murmurs, gallops, or rubs. Bilateral radial and pedal pulses are 2+. RESPIRATORY: Breath sounds equal bilaterally. No accessory muscle use. Lungs sounds are clear to auscultation. GASTROINTESTINAL: Abdomen soft, non-tender, nondistended. MUSCULOSKELETAL: No cyanosis, or edema. BACK: Nontender without obvious deformity. No CVA tenderness. Data Data Last Documented VS Vital Signs Date Time Temp Pulse Resp B/P (MAP) Pulse Ox O2 Delivery O2 Flow Rate FiO2 02/02/17 17:45 69 20 176/84 (114) 97 Room Air 02/02/17 15:15 98.2 Orders Orders Chest, Single Ap (02/02/17 ) Complete Blood Count With Diff (02/02/17 16:24) Basic Metabolic Panel (Bmp) (02/02/17 16:24) Act Partial Throm Time (Ptt) (02/02/17 16:24) Prothrombin Time / Inr (Pt) (02/02/17 16:24) Magnesium (Mg) (02/02/17 16:24) Ckmb (Isoenzyme) Profile (02/02/17 16:24) Troponin I (02/02/17 16:24) Blood Culture (02/02/17 16:24) Iv Access Insert/Monitor (02/02/17 16:24) Electrocardiogram (02/02/17 16:24) Ecg Monitoring (02/02/17 16:24) Oximetry (02/02/17 16:24) Oxygen Administration (02/02/17 16:24) Sodium Chloride 0.9% Flush (Ns Flush) (02/02/17 16:30) Lactic Acid Sepsis Protocol (02/02/17 16:24) Vancomycin Inj (Vancomycin Inj) (02/02/17 16:30) Piperacil-Tazo 3.375 Gm Premix (Zosyn 3. (02/02/17 16:30) Admit Order (Ed Use Only) (02/02/17 20:41) Labs Laboratory Tests Test 02/02/17 17:15 02/02/17 17:25 02/02/17 19:10 White Blood Count 7.6 TH/MM3 Red Blood Count 3.91 MIL/MM3 Hemoglobin 12.6 GM/DL Hematocrit 37.6 % Mean Corpuscular Volume 96.2 FL Mean Corpuscular Hemoglobin 32.2 PG Mean Corpuscular Hemoglobin Concent 33.5 % Red Cell Distribution Width 15.7 % Platelet Count 266 TH/MM3 Mean Platelet Volume 9.0 FL Neutrophils (%) (Auto) 53.6 % Lymphocytes (%) (Auto) 30.0 % Monocytes (%) (Auto) 7.0 % Eosinophils (%) (Auto) 7.8 % Basophils (%) (Auto) 1.6 % Neutrophils # (Auto) 4.1 TH/MM3 Lymphocytes # (Auto) 2.3 TH/MM3 Monocytes # (Auto) 0.5 TH/MM3 Eosinophils # (Auto) 0.6 TH/MM3 Basophils # (Auto) 0.1 TH/MM3 CBC Comment AUTO DIFF Differential Comment AUTO DIFF CONFIRMED Platelet Estimate NORMAL Platelet Morphology Comment NORMAL Lactic Acid Level 0.5 mmol/L Prothrombin Time 10.4 SEC Prothromb Time International Ratio 1.0 RATIO Activated Partial Thromboplast Time 21.2 SEC Blood Urea Nitrogen 23 MG/DL Creatinine 0.98 MG/DL Random Glucose 80 MG/DL Calcium Level 8.1 MG/DL Magnesium Level 2.1 MG/DL Sodium Level 141 MEQ/L Potassium Level 4.1 MEQ/L Chloride Level 109 MEQ/L Carbon Dioxide Level 23.7 MEQ/L Anion Gap 8 MEQ/L Estimat Glomerular Filtration Rate 54 ML/MIN Total Creatine Kinase 93 U/L Troponin I LESS THAN 0.02 NG/ML MDM Medical Decision Making Medical Screen Exam Complete: Yes Emergency Medical Condition: Yes Medical Record Reviewed: Yes Interpretation(s) Last Impressions Chest X-Ray 02/02/17 0000 Signed Impressions: Service Date/Time: Thursday, February 02, 2017 15:45 - CONCLUSION: 1. Patchy bilateral lower lobe airspace disease with probable trace pleural effusions. Findings are concerning for pneumonia or aspiration in the appropriate clinical setting. Silver Clarke MD Differential Diagnosis Esophageal foreign body versus cough versus gastritis versus Selena-Shields tear versus esophageal irritation Narrative Course 86-year-old female presents to the emergency department for evaluation from [facility] after she choked on a piece of chicken around noon today. She then has had a cough. She does appear wanted my exam is not coughing. She was able to drink water without difficulty. Chest x-ray is ordered and pending. Chest x-ray shows patchy bilateral lower lobe airspace disease with probable trace pleural effusions, findings are concerning for pneumonia or aspiration the appropriate clinical setting. CBC shows no acute abnormality. CMP shows no acute abnormality. CK is 93. Troponin is less than 0.02. Lactic acid is 0.5. Coags show no acute abnormality. Patient is started on vancomycin, Zosyn for aspiration pneumonia. Dr. Kyle accepted admission. Diagnosis Primary Impression: Aspiration pneumonia Qualified Codes: J69.0 - Pneumonitis due to inhalation of food and vomit Additional Impression: Dementia Qualified Codes: F03.90 - Unspecified dementia without behavioral disturbance Admitting Information Admitting Physician Requests: Mary Grace Quinn Feb 02, 2017 15:32
--- NOTE | 2017-02-02 16:09 | RADRPT ---
EXAM DATE/TIME: 02/02/2017 15:45 [facility] COMPARISON: CHEST SINGLE AP, December 21, 2016, 1:13. INDICATIONS : Cough. MEDICAL HISTORY : None. SURGICAL HISTORY : Hysterectomy. ENCOUNTER: Initial ACUITY: 1 day PAIN SCORE: 0/10 LOCATION: Bilateral chest FINDINGS: Patchy bilateral airspace disease at the lung bases with probable trace bilateral pleural effusions. Cardiomediastinal contours are stable. Remainder of the exam is unchanged. CONCLUSION: 1. Patchy bilateral lower lobe airspace disease with probable trace pleural effusions. Findings are c oncerning for pneumonia or aspiration in the appropriate clinical setting. Silver Clarke MD on February 02, 2017 at 16:06 Board Certified Radiologist. This report was verified electronically.
[2017-02-02] MEDS ORDERED: SODIUM CHLORIDE 0.9% FLUSH 10 ML FLUSH IVF PRN (16:30)
[2017-02-02] MEDS ORDERED: PIPERACIL-TAZO 3.375 GM PREMIX 50 ML IV ONE (16:30)
[2017-02-02] MEDS ORDERED: VANCOMYCIN INJ 1,000 MG in SODIUM CHLOR 0.9% 250 ML INJ 250 ML IV ONE (16:30)
[2017-02-02 17:45] VITALS: BP 176/84; PULSE 69; RESP 20; O2SAT 97
[2017-02-02] MEDS ORDERED: RENATAB6 PO (17:51)
[2017-02-02 17:55] LABS: AUTOMATED NEUTROPHIL # 4.1 TH/MM3 (1.8-7.7); BASOPHIL # 0.1 TH/MM3 (0-0.2); BASOPHIL % 1.6 % (0.0-2.0); EOSINOPHIL # 0.6 TH/MM3 (0-0.4); EOSINOPHIL % 7.8 % (0.0-4.0); HEMATOCRIT 37.6 % (35.0-46.0); LYMPHOCYTE # 2.3 TH/MM3 (1.0-4.8); MEAN CELL VOLUME 96.2 FL (80.0-100.0); MEAN CORPUSCULAR HEMOGLOBIN 32.2 PG (27.0-34.0); MEAN CORPUSCULAR HGB CONC 33.5 % (32.0-36.0); NEUT % 53.6 % (16.0-70.0); PLATELET COUNT 266 TH/MM3 (150-450); RED BLOOD COUNT 3.91 MIL/MM3 (4.00-5.30); RED CELL DISTRIBUTION WIDTH 15.7 % (11.6-17.2); WHITE BLOOD COUNT 7.6 TH/MM3 (4.0-11.0)
[2017-02-02 17:57] LABS: HEMO FLAGS AUTO DIFF
[2017-02-02 18:53] LABS: PLATELET ESTIMATE SMEAR NORMAL (NORMAL); PLATELET MORPHOLOGY NORMAL (NORMAL); SCAN/DIFF AUTO DIFF CONFIRMED
[2017-02-02 20:00] VITALS: BP 159/77; PULSE 72; RESP 16; O2SAT 98
[2017-02-02 20:05] LABS: ANION GAP 8 MEQ/L (5-15); BICARBONATE 23.7 MEQ/L (21.0-32.0); BLOOD UREA NITROGEN 23 MG/DL (7-18); CHLORIDE 109 MEQ/L (98-107); GLOMERULAR FILTRATION RATE 54 ML/MIN (>89); MAGNESIUM 2.1 MG/DL (1.5-2.5); POTASSIUM 4.1 MEQ/L (3.5-5.1); SODIUM (NA) 141 MEQ/L (136-145)
[2017-02-02 20:07] LABS: APTT (PATIENT) 21.2 SEC (24.3-30.1); PROTHROMBIN TIME - PATIENT 10.4 SEC (9.8-11.6)
[2017-02-02 20:09] LABS: CREATINE KINASE 93 U/L (26-192)
[2017-02-02] MEDS ORDERED: LACTULOSE SYRUP 20 GM/30 ML CUP PO PRN (21:15)
[2017-02-02] MEDS ORDERED: ACETAMINOPHEN/HYDROcodone 325 MG/5 MG TAB PO PRN (21:15)
[2017-02-02] MEDS ORDERED: SODIUM CHLORIDE 0.9% FLUSH 10 ML FLUSH IV FLUSH PRN (21:15)
[2017-02-02] MEDS ORDERED: MAGNESIUM HYDROXIDE SUSP 30 ML CUP PO PRN (21:15)
[2017-02-02] MEDS ORDERED: SENNOSIDES 8.6 MG TAB PO PRN (21:15)
[2017-02-02] MEDS ORDERED: NALOXONE HCL 0.4 MG/ML AMP IV PUSH PRN (21:15)
[2017-02-02] MEDS ORDERED: BISACODYL 10 MG SUPP RECTAL PRN (21:15)
[2017-02-02] MEDS ORDERED: ACETAMINOPHEN 325 MG TAB PO PRN (21:15)
[2017-02-02] MEDS ORDERED: ZOLPIDEM TARTRATE 5 MG TAB PO PRN (21:15)
[2017-02-02] MEDS ORDERED: ONDANSETRON HCL 4 MG/2 ML VIAL IVP PRN (21:15)
[2017-02-02] MEDS ORDERED: DEXT 5%-NACL 0.9% 1000 ML INJ 1,000 ML IV SCH (22:00)
[2017-02-02] MEDS ORDERED: PANTOPRAZOLE SODIUM 40 MG VIAL IV PUSH SCH (22:00)
[2017-02-02] MEDS ORDERED: LEVOFLOXACIN 750 MG PREMIX INJ 150 ML IV SCH (22:00)
[2017-02-02] MEDS ORDERED: HEPARIN SODIUM - SQ 10,000 UNITS/ML VIAL SQ SCH (22:00)
[2017-02-03 00:14] VITALS: BP 111/57; PULSE 80; RESP 18; TEMP 96.9; O2SAT 98
[2017-02-03 03:10] VITALS: BP 127/5; PULSE 73; RESP 18; TEMP 96.6; O2SAT 95
[2017-02-03 04:05] VITALS: PULSE 65
[2017-02-03 07:09] LABS: BICARBONATE 26.7 MEQ/L (21.0-32.0); POTASSIUM 3.8 MEQ/L (3.5-5.1)
[2017-02-03 07:10] VITALS: BP 136/68; PULSE 67; RESP 16; TEMP 97.7; O2SAT 97
[2017-02-03 07:17] LABS: AUTOMATED NEUTROPHIL # 3.1 TH/MM3 (1.8-7.7); BASOPHIL # 0.1 TH/MM3 (0-0.2); EOSINOPHIL # 0.7 TH/MM3 (0-0.4); EOSINOPHIL % 10.1 % (0.0-4.0); HEMATOCRIT 32.8 % (35.0-46.0); HEMO FLAGS DIFF FINAL; LYMPH % 30.4 % (9.0-44.0); MEAN CELL VOLUME 95.9 FL (80.0-100.0); MEAN CORPUSCULAR HEMOGLOBIN 32.4 PG (27.0-34.0); MEAN CORPUSCULAR HGB CONC 33.8 % (32.0-36.0); MONO % 10.4 % (0.0-8.0); NEUT % 48.1 % (16.0-70.0); PLATELET COUNT 229 TH/MM3 (150-450); RED BLOOD COUNT 3.42 MIL/MM3 (4.00-5.30); RED CELL DISTRIBUTION WIDTH 15.8 % (11.6-17.2); WHITE BLOOD COUNT 6.4 TH/MM3 (4.0-11.0)
[2017-02-03] MEDS: RESP: ALBUTEROL 2.5 MG/IPRATROPIUM 0.5 MG NEB (SCH) NEB ×2 (08:00→12:00)
[2017-02-03] MEDS ORDERED: POLYETHYLENE GLYCOL 17 GM PKG PO SCH (09:00)
[2017-02-03] MEDS ORDERED: INFLUENZA VIRUS VACCINE (QUADRIVALENT) 0.5 ML SYR IM ONE (09:00)
[2017-02-03] MEDS ORDERED: DOCUSATE SODIUM 50 MG/SENNA 8.6 MG TAB PO SCH (09:00)
[2017-02-03] MEDS ORDERED: SODIUM CHLORIDE 0.9% FLUSH 10 ML FLUSH IV FLUSH SCH (09:00)
[2017-02-03] MEDS ORDERED: LEVO500T8 PO (11:50)
--- NOTE | 2017-02-03 11:50 | HHI.DCPOC ---
Discharge Care Plan Diagnosis: (1) Dementia (2) Aspiration pneumonia (3) Constipation (4) Lumbar compression fracture (5) CKD (chronic kidney disease) (6) Fall (7) Closed head injury (8) Left wrist pain Goals to Promote Your Health * To prevent worsening of your condition and complications * To maintain your health at the optimal level Directions to Meet Your Goals Take your medications as prescribed Follow your dietary instruction Follow activity as directed Keep your appointments as scheduled Take your immunizations and boosters as scheduled If your symptoms worsen call your PCP, if no PCP go to Urgent Care Center or Emergency Room Smoking is Dangerous to Your Health. Avoid second hand smoke Call the 24-hour hour crisis hotline for domestic abuse at Hany Kyle MD Feb 03, 2017 11:50
--- NOTE | 2017-02-03 11:53 | HHI.DS ---
Discharge Summary Admission Date Feb 02, 2017 at 20:42 Discharge Date: Feb 03, 2017 Admitting Diagnosis aspiration pneumonia (1) Aspiration pneumonia ICD Codes: J69.0 - Pneumonitis due to inhalation of food and vomit Status: Acute (2) Dementia ICD Codes: F03.90 - Unspecified dementia without behavioral disturbance (3) CKD (chronic kidney disease) ICD Codes: N18.9 - Chronic kidney disease, unspecified CBC/BMP: 02/03/17 0548 02/03/17 0548 Significant Findings Laboratory Tests Test 02/02/17 17:15 02/02/17 17:25 02/02/17 19:10 02/03/17 05:48 Red Blood Count 3.91 MIL/MM3 (4.00-5.30) 3.42 MIL/MM3 (4.00-5.30) Eosinophils (%) (Auto) 7.8 % (0.0-4.0) 10.1 % (0.0-4.0) Eosinophils # (Auto) 0.6 TH/MM3 (0-0.4) 0.7 TH/MM3 (0-0.4) Activated Partial Thromboplast Time 21.2 SEC (24.3-30.1) Blood Urea Nitrogen 23 MG/DL (7-18) 19 MG/DL (7-18) Calcium Level 8.1 MG/DL (8.5-10.1) Chloride Level 109 MEQ/L (98-107) Estimat Glomerular Filtration Rate 54 ML/MIN (>89) 52 ML/MIN (>89) Troponin I LESS THAN 0.02 NG/ML Hemoglobin 11.1 GM/DL (11.6-15.3) Hematocrit 32.8 % (35.0-46.0) Monocytes (%) (Auto) 10.4 % (0.0-8.0) Creatinine 1.01 MG/DL (0.50-1.00) Imaging Last 72 hours Impressions Chest X-Ray 02/02/17 0000 Signed Impressions: Service Date/Time: Thursday, February 02, 2017 15:45 - CONCLUSION: 1. Patchy bilateral lower lobe airspace disease with probable trace pleural effusions. Findings are concerning for pneumonia or aspiration in the appropriate clinical setting. Silver Clarke MD PE at Discharge GENERAL: SKIN: Warm and dry. HEAD: Atraumatic. Normocephalic. EYES: Pupils equal and round. No scleral icterus. No injection or drainage. ENT: No nasal bleeding or discharge. Mucous membranes pink and moist. NECK: Trachea midline. No JVD. CARDIOVASCULAR: Regular rate and rhythm. RESPIRATORY: No accessory muscle use. Clear to auscultation. Breath sounds equal bilaterally. GASTROINTESTINAL: Abdomen soft, non-tender, nondistended. Hepatic and splenic margins not palpable. MUSCULOSKELETAL: Extremities without clubbing, cyanosis, or edema. No obvious deformities. NEUROLOGICAL: Awake and alert. No obvious cranial nerve deficits. Motor grossly within normal limits. Five out of 5 muscle strength in the arms and legs. Normal speech. PSYCHIATRIC: Appropriate mood and affect; insight and judgment normal. Hospital Course 86 Y CF. ADMIT W ASPIRATION ON CHICKEN. PT OK. NO C/O. D/W DGTR. LABS AND VITALS STABLE. TOLERATED ABNX. NO FURTHER COUGHING. DC TO SNF Pt Condition on Discharge: Stable Discharge Disposition: Discharge to SNF Discharge Instructions DIET: Follow Instructions for: As Tolerated, No Restrictions Additional Diet Instructions: SPEECH THERAPY EVAL AT [facility] Activities you can perform: Regular-No Restrictions New Medications: Levofloxacin (Levofloxacin) 500 Mg Tablet 500 MG PO DAILY for Infection, #5 TAB 0 Refills Continued Medications: Acetaminophen (APAP Extra Strength) 500 Mg Tab 500 MG PO TID for Pain Management, #90 TAB B-Complex W/ C & Folic Acid (Catie-Pat Rx) 1 Tab 1 TAB PO DAILY for Nutritional Supplement, #30 TAB 0 Refills Citalopram (Citalopram) 20 Mg Tab 20 MG PO DAILY for Control Depression, #30 TAB 0 Refills Memantine Er (Namenda Xr) 28 Mg Caper 28 MG PO DAILY for Alzheimer Disease, #30 CAP 0 Refills Polyethylene Glycol 3350 Powder (Miralax Powder) 17 Gm Powd 17 GM PO DAILY for Constipation, #1 CAN 0 Refills Mix and dissolve one measuring cap-ful (17 grams) in water or juice. Hany Kyle MD Feb 03, 2017 11:53
[2017-02-03 12:21] VITALS: BP 137/68; PULSE 69; RESP 16; TEMP 98.1; O2SAT 98
--- NOTE | 2017-02-03 12:28 | MH ---
cc: HEIDY GRANADOS MD DATE OF ADMISSION 02/02/2017 CHIEF COMPLAINT Aspiration HISTORY OF PRESENT ILLNESS Elena is an 86-year-old female who I am seeing at [facility]. She choked on a piece of chicken for lunch. She did poorly and she was short of breath and coughing. I was called with the report and suggested they take her to the emergency room. She was seen in the emergency room and chest x-ray showed pneumonia and aspiration. She was started on sepsis protocol and given vancomycin and Zosyn. She has done well with speech therapy. She appears to be at her baseline. Daughter is asking her to discharge. PAST MEDICAL HISTORY 1. Depression 2. Dementia PAST SURGICAL HISTORY None SOCIAL HISTORY No alcohol, tobacco or illicit drug usage. ALLERGIES NO KNOWN DRUG ALLERGIES. HOME MEDICATIONS 1. MiraLax 2. Catie-Pat 3. Namenda 4. Citalopram REVIEW OF SYSTEMS Initial choking episode with coughing now resolved, negative 14-point review of systems otherwise. LABORATORY DATA WBC 7.6, hemoglobin normal, creatinine 0.98. Chest x-ray shows aspiration. PHYSICAL EXAM VITALS: Temperature is 97.7, pulse 67, respirations 16, blood pressure 136/68, pulse 97, respirations 18. HEENT: Oropharynx is clear. CHEST: Clear. No wheezes, rales, crackles or coughing. After cough, she is completely clear. CARDIOVASCULAR: Regular rate and rhythm. ABDOMEN: Soft, nontender. EXTREMITIES: No edema. SKIN: Clear. NEUROLOGIC: A and O times one. No apparent distress. She is has dementia and is unable to follow commands. She is pleasant, smiling and jovial, although very confused. EXTREMITIES: No edema. SKIN: Clear. ASSESSMENT 1. Choking episode 2. Aspiration 3. Aspiration pneumonitis 4. Constipation 5. Dementia PLAN 1. Observation admission 2. Levaquin IV 3. DuoNebs q.i.d. 4. Heparin 5000 b.i.d. for DVT prophylaxis 5. Pantoprazole 40 mg IV daily for GI prophylaxis 6. Zofran p.r.n. 7. I will see how she does and possibly discharge. 8. Pulmonary consult Heidy Granados MD RP/ROSANNA /11:55 AM /12:12 PM
--- NOTE | 2017-02-03 17:11 | EKG ---
Date Performed: 02/02/2017 Time Performed: 17:12:23 PTAGE: 86 years EKG: Probably normal Sinus rhythm with premature atrial contractions. Baselineline artifact limits accuracy of interpretation. MARKED LEFT AXIS DEVIATION RIGHT BUNDLE BRANCH BLOCK ABNORMAL ECG NO PREVIOUS TRACING DOCTOR: Jose De Jesus Haile Interpretating Date/Time 02/03/2017 17:10:39
--- NOTE | 2017-02-03 18:50 | MB ---
cc: MICHAEL SHEEHAN DATE OF CONSULTATION 02/03/17 HISTORY OF PRESENT ILLNESS Ms. Lopez is an 86-year-old white female who was brought in from [facility] last evening when she choked on some of her dinner. She was short of breath and it was concerning that she may have aspirated. Initial chest x-ray revealed either some chronic changes at the bases or small effusions, possible patchy lower lobe infiltrates. I spoke to she and her daughter at the bedside today and she has been entirely asymptomatic since she presented yesterday. In fact, she is sitting up eating her lunch at the time of this interview and having no difficulty with swallowing. Daughter insists that she has had no problem before and she thinks it was an isolated incident. She has remained afebrile. Her white count is normal. She has had no cough or congestion, nothing has suggested she has a serious ongoing infection or aspiration. She has no prior pulmonary history, never smoked. PAST MEDICAL HISTORY 1. Depression 2. Mild dementia. She is now in [facility] in the assisted living facility. PAST SURGICAL HISTORY None. SOCIAL HISTORY Again, living in assisted living. Daughter is at the bedside very supportive. No alcohol use. No prior history of smoking. ALLERGIES None. MEDS Reviewed in the EMR. REVIEW OF SYSTEMS The patient denies any active symptoms at present, says she feels very comfortable. PHYSICAL EXAMINATION GENERAL: Elderly white female in no distress. VITAL SIGNS: 97 degrees, 130/70, pulse 70, respirations 16, sat room air 97%. HEENT: Mucous membranes are moist. NECK: Neck veins are flat. CHEST: Completely clear. CARDIAC: Regular rhythm. No harsh murmur. ABDOMEN: Soft. EXTREMITIES: No peripheral edema or calf tenderness. No cyanosis. LABORATORY DATA Blood cultures are negative. White count is 6400. Lactic acid level Is normal and BUN and creatinine are 19 and 1.01. DISCUSSION Ms. Hurtado had a choking episode last night while eating. It does seem to be at least historically an isolated event. I did talk to her daughter and asked her to watch to see if this was something that happened with any frequency, as swallowing abnormalities in this age group are not uncommon. She does not appear to have any significant infection at this time. I do not think any further pulmonary intervention is necessary and I have notified Dr. Kyle, her primary physician, that she has my approval for discharge back to the nursing facility. R. MD SEDRICK Unger/ /5:57 PM /6:35 PM
== END 2017-02-03 15:25 ==
LOC: NEPC 14:47 → NEDA 20:42 → NEPFCDU 21:50
PROVIDERS: ADMIT Family Medicine; ATTEND Family Medicine
DX: J69.0 Pneumonitis due to inhalation of food and vomit (principal); F03.90 Unspecified dementia, unspecified severity, without behavioral disturbance, psychotic disturbance, mood disturbance, and anxiety; R06.02 Shortness of breath; F32.9 Major depressive disorder, single episode, unspecified; I45.10 Unspecified right bundle-branch block; N18.9 Chronic kidney disease, unspecified
CPT/HCPCS: 71010; 80048; 82550; 83605; 83735; 84484; 85025; 85610; 85730; 87040; 92610; 93005; 96361; 96365; 96366; 96372; 97162; 99285; C9113; G0378; G8987; G8988; G8996; G8997; G8998; J1644; J1956; J2543; J3370; J7042; J7050